=== PATIENT | female | born 1945 | race Caucasian/White ===

== ENCOUNTER → 2016-06-17 | Outpatient (CLI) | payer BC, MEDICARE, SELFPAY ==
[2016-06-17 18:15] LABS: BASO % 0.3 % (0.0-1.0); EOS # 0.1 K/mm3 (0.0-0.50); EOS % 1.7 % (0.0-3.0); LARGE UNSTAINED CELL # 0.1 K/mm3 (0.0-0.4); LARGE UNSTAINED CELL % 2.1 % (0.0-4.0); LYMPH # 1.3 K/mm3 (1.5-4.5); LYMPH % 25.3 % (24.0-44.0); MEAN CORPUSCULAR HEMOGLOBIN 30.3 pg (27.0-33.0); MEAN CORPUSCULAR HGB CONC 33.3 g/dl (32.0-36.5); MONO # 0.3 K/mm3 (0.0-0.8); MONO % 5.9 % (0.0-5.0); NEUTROPHILS % 64.7 % (36.0-66.0); PLATELET COUNT, AUTOMATED 248 k/mm3 (150-450); RED CELL DISTRIBUTION WIDTH 13.3 % (11.5-14.5); WHITE BLOOD COUNT 4.7 K/mm3 (4.0-10.0)
[2016-06-17 19:25] LABS: ALBUMIN 3.7 GM/DL (3.2-5.2); ALBUMIN/GLOBULIN RATIO 1.16 (1.00-1.93); ALKALINE PHOSPHATASE 99 U/L (45-117); ALT/SGPT 20 U/L (12-78); ANION GAP 10 MEQ/L (8-16); AST/SGOT 14 U/L (15-37); BILIRUBIN,TOTAL 0.8 MG/DL (0.2-1.0); BLOOD UREA NITROGEN 11 MG/DL (7-18); CALCIUM LEVEL 9.4 MG/DL (8.8-10.2); CARBON DIOXIDE LEVEL 27 MEQ/L (21-32); CHLORIDE LEVEL 107 MEQ/L (98-107); CHOLESTEROL LEVEL 181 MG/DL (<200); CREATININE FOR GFR 0.64 MG/DL (0.55-1.02); FREE T4 1.81 NG/DL (0.76-1.46); GLOMERULAR FILTRATION RATE > 60.0 (>39); GLUCOSE, FASTING 113 MG/DL (83-110); POTASSIUM SERUM 3.9 MEQ/L (3.5-5.1); SODIUM LEVEL 144 MEQ/L (136-145); TOTAL PROTEIN 6.9 GM/DL (6.4-8.2); TRIGLYCERIDES LEVEL 80 MG/DL (<150)
== END | disposition home or self-care (01) ==
LOC: M WUC 09:08
PROVIDERS: ATTEND Physician Assistant
DX: I10 Essential (primary) hypertension (principal)

== ENCOUNTER 2016-07-26 20:16 | Emergency (ER) | payer MEDICARE ==
[~2016-07-26] VITALS: Ht 160 cm; Wt 61.2 kg
[2016-07-26] MEDS ORDERED: ATEN25TA PO (20:34)
[2016-07-26] MEDS ORDERED: cloNIDine 0.2 MG TAB PO ONE (21:45)
[2016-07-26 21:46] LABS: ANION GAP 9 MEQ/L (8-16); BLOOD UREA NITROGEN 14 MG/DL (7-18); CALCIUM LEVEL 8.9 MG/DL (8.8-10.2); CARBON DIOXIDE LEVEL 28 MEQ/L (21-32); CHLORIDE LEVEL 106 MEQ/L (98-107); CREATININE FOR GFR 0.66 MG/DL (0.55-1.02); GLOMERULAR FILTRATION RATE > 60.0 (>39); GLUCOSE, FASTING 126 MG/DL (83-110); POTASSIUM SERUM 3.5 MEQ/L (3.5-5.1); SODIUM LEVEL 143 MEQ/L (136-145)
[2016-07-26 22:28] VITALS: BP 206/106
[2016-07-26] MEDS ORDERED: **hydrALAZINE** 10 MG TAB PO ONE (22:30)
[2016-07-26] MEDS ORDERED: CLONI1TA PO (23:16)
[2016-07-27 00:16] VITALS: BP 152/81
--- NOTE | 2016-07-27 09:02 | ECGEPIP ---
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
== END 2016-07-27 00:18 | disposition home or self-care (01) ==
LOC: EDBD 20:16 → M ED 21:41
DX: I10 Essential (primary) hypertension (principal); Z88.5 Allergy status to narcotic agent; Z79.899 Other long term (current) drug therapy

== ENCOUNTER 2016-07-30 08:06 | Inpatient (IN) | payer MEDICARE ==
[~2016-07-30] VITALS: Ht 160 cm; Wt 62.6 kg
[~2016-07-30 08:06] MED LIST: ATEN25TA PO; CLONI1TA PO
[2016-07-30] MEDS: LABETALOL HCL 100 MG/20 ML VIAL IV PRN ×2 (08:50→09:06)
[2016-07-30 08:53] LABS: BASO % 0.4 % (0.0-1.0); EOS # 0.1 K/mm3 (0.0-0.50); EOS % 2.3 % (0.0-3.0); LARGE UNSTAINED CELL # 0.2 K/mm3 (0.0-0.4); LARGE UNSTAINED CELL % 2.9 % (0.0-4.0); LYMPH # 1.2 K/mm3 (1.5-4.5); LYMPH % 21.3 % (24.0-44.0); MEAN CORPUSCULAR HEMOGLOBIN 29.8 pg (27.0-33.0); MEAN CORPUSCULAR HGB CONC 33.7 g/dl (32.0-36.5); MEAN CORPUSCULAR VOLUME 88.4 fl (80.0-96.0); MONO # 0.3 K/mm3 (0.0-0.8); MONO % 4.5 % (0.0-5.0); NEUTROPHILS # 3.9 K/mm3 (1.8-7.7); NEUTROPHILS % 68.6 % (36.0-66.0); PLATELET COUNT, AUTOMATED 244 k/mm3 (150-450); RED CELL DISTRIBUTION WIDTH 13.1 % (11.5-14.5); WHITE BLOOD COUNT 5.7 K/mm3 (4.0-10.0)
--- NOTE | 2016-07-30 08:54 | REP ---
Clinical: Acute cerebrovascular accident. Comparison: None. Findings: Very subtle area of low density within the right parietal white matter tracts (images 17 - 20) is nonspecific and may represent acute versus chronic area of infarction. The guevara-white differentiation is maintained. There is no intracranial hemorrhage, mass or mass effect. The ventricles and sulci and basilar cisterns are normal in appearance. Impression: 1. Very subtle low density area in the right parietal white matter tract is nonspecific. Differential diagnosis includes small acute versus chronic cerebrovascular infarct. 2. No hemorrhage or mass/mass effect. Signed by Blake Maloney MD 07/30/2016 08:46 A
[2016-07-30] MEDS ORDERED: ASPIRIN 81 MG CHEW TABLET PO ONE (09:00)
--- NOTE | 2016-07-30 09:05 | REP ---
Clinical: Acute cerebrovascular accident. Comparison: 08/15/2009. Findings: Mediastinum and cardiac silhouette are normal. Lung browning demonstrate chronic changes including linear scarring in the left mid to lower lung zone. No obvious acute consolidation, effusion, or pneumothorax. Skeletal structures intact and normal for age. Impression: Chronic stable changes. No obvious acute cardiopulmonary process. Signed by Blake Maloney MD 07/30/2016 08:56 A
[2016-07-30 09:10] LABS: ALBUMIN 3.4 GM/DL (3.2-5.2); ALBUMIN/GLOBULIN RATIO 0.89 (1.00-1.93); ALKALINE PHOSPHATASE 94 U/L (45-117); ALT/SGPT 16 U/L (12-78); ANION GAP 9 MEQ/L (8-16); AST/SGOT 11 U/L (15-37); BILIRUBIN,DIRECT 0.2 MG/DL (0.0-0.2); BILIRUBIN,TOTAL 0.6 MG/DL (0.2-1.0); BLOOD UREA NITROGEN 14 MG/DL (7-18); CALCIUM LEVEL 9.1 MG/DL (8.8-10.2); CARBON DIOXIDE LEVEL 26 MEQ/L (21-32); CHLORIDE LEVEL 107 MEQ/L (98-107); CREATININE FOR GFR 0.64 MG/DL (0.55-1.02); GLOMERULAR FILTRATION RATE > 60.0 (>39); GLUCOSE, FASTING 138 MG/DL (83-110); POTASSIUM SERUM 3.4 MEQ/L (3.5-5.1); SODIUM LEVEL 142 MEQ/L (136-145); TOTAL PROTEIN 7.2 GM/DL (6.4-8.2)
[2016-07-30 09:19] LABS: INR 1.01
[2016-07-30] MEDS ORDERED: **hydrALAZINE HCL** 25 MG TAB PO ONE (09:45)
[2016-07-30] MEDS ORDERED: hydrALAZINE INJ 20 MG/ML VIAL IV ONE (09:45)
[2016-07-30] MEDS ORDERED: XIID5DRO OU (09:57)
[2016-07-30] MEDS ORDERED: LORazepam 1 MG TAB PO STA (11:08)
[2016-07-30] MEDS ORDERED: POTASSIUM CHLORIDE 10 MEQ SR TABLET PO ONE (12:00)
[2016-07-30] MEDS: **hydrALAZINE HCL** 25 MG TAB PO SCH ×2 (12:00→17:44)
[2016-07-30] MEDS ORDERED: LISINOPRIL 10 MG TAB PO ONE (12:00)
[2016-07-30 12:03] VITALS: BP 189/93
--- NOTE | 2016-07-30 12:19 | HPEPDOC ---
General Date of Admission 07/30/16 Primary Care Physician: Josh Choudhary Other Providers Eye Doctor: Dr. Alejo Attending Physician: MARY MORSE MD Chief Complaint The patient is a 70-year-old female admitted with a reason for visit of Chest Pain. Source: Patient Exam Limitations: No limitations Associated Symptoms: Chest Pain, Headaches, Shortness of breath, Dizziness History of Present Illness PRIMARY CARE PROVIDER: Dr. Josh Choudhary CHIEF COMPLAINT: Dizziness, numbness in the left arm, left sided chest pain, and high blood pressure HISTORY OF PRESENT ILLNESS: 70-year-old [place] female with past medical history significant for hypertension, sinusitis, psoriasis, depression, and questionable arthritis, presented to the emergency department at [facility] for symptoms of lightheadedness, dizziness, left arm numbness, and left-sided chest pain that began this morning when she woke up. States that in mid May she had thought she had caught a virus because she was feeling sick, she went to the urgent care, was found to have high blood pressure, was given atenolol, which she took and sometimes felt better, sometimes felt worse, or some days she felt great. She went back to the urgent care last , they had sent her to the emergency department via ambulance due to high blood pressure at 235 systolic. In the emergency department, she was kept for 4 hours to get her blood pressure down, was given clonidine which she took 2 tabs of which made her feel feel horrible, dizzy, nauseated. She had stopped this medication and went back to taking atenolol. She took atenolol on Saturday night and yesterday. She slept well last night. This morning, she did not feel too bad at first, she woke up this morning and felt funny, lightheaded, and had numbness in her left arm, and somewhat left- sided chest pain,. She tried to call somebody to get her to the emergency department. Her neighbor had brought her to emergency department. States she has not seen for 5 years since she lost her Blue Cross Blue Shield insurance and she was not eligible for Medicare at the age of 65. She had to wait for Social Security from her ex-. She could not afford private insurance as she never worked in this country. She originally saw Dr. Josh Choudhary as her PCP until she had lost her insurance at age 65. Since then, she has not been on any of her blood pressure medications. She has reestablished care with him now. At this point in time, patient denies fevers, chills, dizziness, chest pain, shortness of breath, nausea, vomiting, abdominal pain, diarrhea, constipation, rashes or lesions anywhere, swelling,. She admits to a light headache in her forehead which has become better, mainly feeling that this is due to sinus pressure. She also admitted to shortness of breath in the morning until she had gone to the emergency department and was treated for her high blood pressure. She denies numbness, tingling in any extremities at this point in time. She reports improvement in sensation in her left arm. Denies paresthesias in the left arm. Admits to a sore throat, denies ear pain, denies cough. ALLERGIES: Seasonal, hydrocodone--rash PAST MEDICAL HISTORY: Hypertension Sinusitis Psoriasis Depression Questionable arthritis (In the right foot Glaucoma PAST SURGICAL HISTORY: Hysterectomy Repair of incarcerated hernia Bunion surgery MEDICATIONS: Atenolol 25 mg by mouth daily Claritin OTC sometimes for seasonal allergies Eye Drops once a day Vitamin B12 Vitamin D Biosil Flonase sometimes SOCIAL HISTORY: Was a social smoker 35-40 years ago but has quit. No recent tobacco use. Sometimes drinks a glass of wine, but not every day. Is not a heavy drinker. No illicit drug use. No pets. Lives at home by self. Is . 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 Has 3 children: 2 twin boys who are 51 years of age who live in [place], and one son who is 30 years old lives in [facility] FAMILY HISTORY: Mother: Hypertension 2 sons in [place]: Hypertension CODE STATUS: Has healthcare proxy: Son is 1st: Tc Kevin (lives in [place]), if not available Ex- is next : Luis Manuel Rosado Power of Product Marketing Director: Ex- Luis Manuel Rosado No MOLST form REVIEW OF SYSTEMS: All ROS negative except for those reported above in HPI. PHYSICAL EXAMINATION: Vitals: T: 97.8, BP: 261/132 (175), RR: 16, P: 80 General: Pleasant elderly female with accent. Lying down and the head of the bed in no acute distress. Awake, alert, oriented 3 HEENT: Head: normocephalic, atraumatic. Eyes: PERRL, sclera are nonicteric. Nose: No external lesions Throat: no pharyngeal erythema or exudates, moist buccal mucosa Neck: No thyromegaly. Respiratory: clear to auscultation bilaterally with no wheezes, rales, or rhonchi. Cardiovascular: regular rate and rhythm, with no murmurs, rubs or gallops. Abdomen: soft, nontender, nondistended, no hepatosplenomegaly appreciated. Bowel sounds present. Extremities: 5/5 strength in upper and lower extremities bilaterally, no swelling in either lower extremity bilaterally Neurological: sensation intact and symmetrical in upper and lower extremities bilaterally, Cranial nerves II through XII intact bilaterally Lymphatics: No cervical lymphadenopathy bilaterally. Integumentary: Has some erythema and pimples and on cheeks bilaterally. Vascular: pulses palpable and symmetrical in upper and lower extremities bilaterally LABORATORY DATA: Please see below. Significant for potassium of 3.4, troponin less than 0.021, a fasting glucose of 138. ELECTROCARDIOGRAM: 07/30/16: Showed sinus rhythm with occasional ventricular premature complexes, possible left atrial enlargement, left ventricular hypertrophy, and ST-T change at a ventricular rate of 76 bpm, QRS duration 101 ms, PA interval 126 ms, and a QTC of 405 ms. RADIOLOGY: CT scan of the head without contrast impression: Very subtle low density area in the right parietal white matter tract is nonspecific. Differential diagnosis includes small acute versus chronic cerebrovascular infarct. No hemorrhage or mass/mass effect. Portable chest x-ray: Lung browning demonstrate chronic changes including linear scarring in the left mid to lower lung zone, no obvious acute consolidation, effusion or pneumothorax. No obvious acute cardiopulmonary process. Chronic stable changes. ASSESSMENT: This is a 70-year-old [place] female with past medical history significant for hypertension, psoriasis, depression, and sinusitis who is being admitted for hypertensive emergency secondary to medication noncompliance due to no availability of medications secondary to insurance issues. PLAN: Hypertensive emergency: Left-sided numbness and paresthesias has improved. Left -sided chest pain has resolved. We'll admit to telemetry, place on chemical dependency therapist, cycle 2 more sets of troponins. Will follow up CBC, BMP, and Mg levels daily. We will repeat an EKG. We'll order a urinalysis to rule out proteinuria/ kidney damage. Will check TFTs. Will continue hydralazine and add additional hypertensive medications as per Dr. Josh Choudhary. Chest pain: We'll cycle troponins and follow-up with repeat EKG. We'll monitor on chemical dependency therapist. Admit to telemetry. Left arm numbness: We'll continue to monitor closely. We'll do frequent neurological checks. Hypokalemia: K of 3.4. Will replace K. Psoriasis: Continue home medications. Headache/sinusitis: Can give Flonase and nasal saline spray. Can add Tylenol PRN pain. Continue home medications. Will get PT on board. DVT ppx: lovenox 40 mg subcutaneously. CODE STATUS: FULL CODE until MOLST form Immunizations as per protocol. My preceptor for this patient encounter was Dr. Mary Morse, and was physically present in the building during the encounter and was fully available. As needed , all aspects of the patient interview, examination, medical decision making process, and medical care plan development were reviewed and approved by the preceptor. Preceptor is aware and concurs with the plan as stated in the body of this note and will attest to such by his/her cosignature. Home Medications Scheduled Hydrochlorothiazide (Hydrochlorothiazide) 25 Mg Tab 25 MG PO DAILY Hydrochlorothiazide (Hydrochlorothiazide) 6.25 Mg Quartertab BID (Reported) Lifitegrast (Xiidra) 5 % Patrick 5 % OU DAILY (Reported) Lisinopril (Lisinopril) 10 Mg Tab 10 MG PO BID Methimazole (Methimazole) 10 Mg Tab 10 MG PO DAILY Metoprolol Tartrate (Metoprolol Tartrate) 25 Mg Tab 12.5 MG PO BID Scheduled PRN Simethicone (Simethicone) 80 Mg Chew 80 MG PO TIDP PRN PRN GAS PAIN Allergies Coded Allergies: Hydrocodone (Verified Allergy, Intermediate, rash, 07/26/16) Vital Signs As above. Laboratory Data Labs 24H Laboratory Tests 2 07/30/16 08:43: Activated Partial Thromboplast Time 32.6, Aspartate Amino Transf (AST/SGOT) 11L , Alanine Aminotransferase (ALT/SGPT) 16, Alkaline Phosphatase 94, Total Bilirubin 0.6, Direct Bilirubin 0.2, Albumin 3.4, Albumin/Globulin Ratio 0.89L, Anion Gap 9, White Blood Count 5.7, Red Blood Count 4.50, Hemoglobin 13.4, Hematocrit 39.8, Mean Corpuscular Volume 88.4, Mean Corpuscular Hemoglobin 29.8 , Mean Corpuscular Hemoglobin Concent 33.7, Red Cell Distribution Width 13.1, Platelet Count 244, Neutrophils (%) (Auto) 68.6H, Lymphocytes (%) (Auto) 21.3L, Monocytes (%) (Auto) 4.5, Eosinophils (%) (Auto) 2.3, Basophils (%) (Auto) 0.4, Neutrophils # (Auto) 3.9, Lymphocytes # (Auto) 1.2L, Monocytes # (Auto) 0.3, Eosinophils # (Auto) 0.1, Basophils # (Auto) 0.0, Calcium Level 9.1, Creatine Kinase MB 1.0, Creatine Kinase MB Relative Index 2.77, Glomerular Filtration Rate > 60.0, Large Unclassified Cells # 0.2, Large Unclassified Cells % 2.9, Prothromb Time International Ratio 1.01, Prothrombin Time 13.4, Total Creatine Kinase 36, Total Protein 7.2, Troponin I < 0.02 CBC/BMP Laboratory Tests 07/30/16 08:43 Red Blood Count 4.50, Mean Corpuscular Volume 88.4, Mean Corpuscular Hemoglobin 29.8, Mean Corpuscular Hemoglobin Concent 33.7, Red Cell Distribution Width 13.1 , Neutrophils (%) (Auto) 68.6 H, Lymphocytes (%) (Auto) 21.3 L, Monocytes (%) ( Auto) 4.5, Eosinophils (%) (Auto) 2.3, Basophils (%) (Auto) 0.4, Neutrophils # ( Auto) 3.9, Lymphocytes # (Auto) 1.2 L, Monocytes # (Auto) 0.3, Eosinophils # ( Auto) 0.1, Basophils # (Auto) 0.0 Plan / VTE VTE Prophylaxis Ordered?: Yes (lovenox) FAHEEM KWON [facility] [place] Jul 30, 2016 12:19 [place] [id number] Jul 30, 2016 12:19
[2016-07-30 12:44] LABS: MAGNESIUM LEVEL 2.1 MG/DL (1.8-2.4)
[2016-07-30 15:14] VITALS: BP 210/108
[2016-07-30] MEDS: ENOXAPARIN 40 MG/0.4 ML SYRINGE (J1650) SC SCH (15:47)
[2016-07-30] MEDS: hydrALAZINE INJ 20 MG/ML VIAL IV PRN (15:49)
[2016-07-30 16:55] VITALS: BP 180/88
[2016-07-30] MEDS: ACETAMINOPHEN TAB 650MG DOSE (2X325MG) PO PRN (17:44)
--- NOTE | 2016-07-30 18:24 | ECGEPIP ---
Stationary ECG Study [facility] - ED Test Date: 2016-07-30 Pat Name: TUAN WHITLEY Department: Room: - Gender: F Code And Test Clerk: preston : 1945 Requested By: Carlos Long Order Number: [id number] Reading MD: Jn Wheeler Measurements Intervals [place] Rate: 76 P: 28 UT: 126 QRS: 15 QRSD: 101 T: 24 QT: 374 QTc: 422 Interpretive Statements SINUS RHYTHM WITH OCCASIONAL VENTRICULAR PREMATURE COMPLEXES POSSIBLE LEFT ATRIAL ENLARGEMENT LEFT VENTRICULAR HYPERTROPHY AND ST-T CHANGE SIMILAR TO 07/26/16 Electronically Signed On 07-30-2016 18:24:22 EDT by Jn Wheeler
[2016-07-30 20:00] VITALS: BP 172/78
[2016-07-30] MEDS: LISINOPRIL 10 MG TAB PO SCH (22:25)
[2016-07-31] MEDS: **hydrALAZINE HCL** 25 MG TAB PO SCH ×5 (01:02→23:01)
[2016-07-31 04:00] VITALS: BP 170/84
[2016-07-31 05:53] LABS: BASO % 0.1 % (0.0-1.0); EOS # 0.1 K/mm3 (0.0-0.50); EOS % 1.2 % (0.0-3.0); LARGE UNSTAINED CELL # 0.1 K/mm3 (0.0-0.4); LARGE UNSTAINED CELL % 2.2 % (0.0-4.0); LYMPH # 0.9 K/mm3 (1.5-4.5); LYMPH % 14.5 % (24.0-44.0); MEAN CORPUSCULAR HEMOGLOBIN 30.7 pg (27.0-33.0); MEAN CORPUSCULAR VOLUME 90.3 fl (80.0-96.0); MONO # 0.5 K/mm3 (0.0-0.8); MONO % 8.4 % (0.0-5.0); NEUTROPHILS # 3.9 K/mm3 (1.8-7.7); NEUTROPHILS % 73.6 % (36.0-66.0); PLATELET COUNT, AUTOMATED 251 k/mm3 (150-450); RED CELL DISTRIBUTION WIDTH 13.3 % (11.5-14.5); WHITE BLOOD COUNT 5.4 K/mm3 (4.0-10.0)
[2016-07-31 06:10] LABS: ANION GAP 9 MEQ/L (8-16); BLOOD UREA NITROGEN 11 MG/DL (7-18); CALCIUM LEVEL 8.8 MG/DL (8.8-10.2); CARBON DIOXIDE LEVEL 26 MEQ/L (21-32); CHLORIDE LEVEL 107 MEQ/L (98-107); CREATININE FOR GFR 0.45 MG/DL (0.55-1.02); GLOMERULAR FILTRATION RATE > 60.0 (>39); GLUCOSE, FASTING 98 MG/DL (83-110); MAGNESIUM LEVEL 1.9 MG/DL (1.8-2.4); POTASSIUM SERUM 3.3 MEQ/L (3.5-5.1); SODIUM LEVEL 142 MEQ/L (136-145); T UPTAKE 37 % (30-39); THYROXINE (T4) 12.2 UG/DL (4.5-12.0)
[2016-07-31 08:00] VITALS: BP 159/77
[2016-07-31] MEDS: LISINOPRIL 10 MG TAB PO SCH ×2 (08:09→20:53)
[2016-07-31] MEDS: ENOXAPARIN 40 MG/0.4 ML SYRINGE (J1650) SC SCH (08:10)
[2016-07-31] MEDS ORDERED: POTASSIUM CHLORIDE 10 MEQ SR TABLET PO ONE (08:30)
[2016-07-31 16:00] VITALS: BP 180/84
--- NOTE | 2016-07-31 16:11 | REP ---
THYROID ULTRASOUND: Real-time sonographic evaluation of the thyroid performed. Both lobes are mildly enlarged, right lobe measuring 5.8 x 2.9 x 2.5 cm and left lobe 5.2 x 2.5 x 2.3 cm. Echotexture diffusely heterogeneous. There are multiple bilateral nodules present. Dominant nodule in the mid to lower lobe measures 2.7 x 2.0 x 1.9 cm and contains several tiny calcifications. Smaller nodule just superior to that measures 8 x 5 x 6 mm. There is a calcification in the right upper pole. A cyst is seen in the right lower pole 1.1 x 0.8 x 0.6 cm. Subcentimeter cyst is seen in the isthmus. Two small nodules are seen in the isthmus measuring 1 cm and 1.2 cm in maximum diameter. A dominant nodule in the left lobe mid aspect measures 1.3 x 1.5 x 1.7 cm containing internal calcifications. Small similar appearing nodules are seen, one more superiorly measuring 1.1 x 1.1 x 1.5 cm and another in the lower pole 1.1 x 1.0 x 1.7 cm. IMPRESSION: Multiple bilateral nodules. Correlation may be made with nuclear thyroid scan. I would at least recommend fine-needle aspiration of the dominant nodule in each lobe. Signed by Cosmo Peres MD 07/31/2016 04:30 P
[2016-07-31 17:32] LABS: FREE T4 1.73 NG/DL (0.76-1.46)
[2016-07-31 20:00] VITALS: BP 194/78
--- NOTE | 2016-07-31 20:13 | IPNPDOC ---
Text Note Date of Service The patient was seen on 07/31/16. NOTE Subjective: 70-year-old [place] female was seen and examined at bedside. She denied fevers, chills, headache, dizziness, chest pain, shortness of breath, nausea, vomiting, diarrhea, constipation, rashes or lesions anywhere, swelling. States that she was feeling better. Denied feeling any numbness or tingling in her left arm today. Otherwise, reports no acute events overnight. Objective: Vitals: T: 98.4, BP: 170/84, RR: 18, P: 77, O2 Saturation: 96% room air General: Pleasant elderly female with accent. Lying down and the head of the bed in no acute distress. Awake, alert, oriented 3 HEENT: Head: normocephalic, atraumatic. Eyes: PERRL, sclera are nonicteric. Nose: No external lesions Neck: No thyromegaly. Respiratory: clear to auscultation bilaterally with no wheezes, rales, or rhonchi. Cardiovascular: regular rate and rhythm, with no murmurs, rubs or gallops. Had a bit of loud palpable heart sounds. Abdomen: soft, nontender, nondistended, no hepatosplenomegaly appreciated. Bowel sounds present. Extremities: Symmetric and equal hand milieu manager bilaterally. No swelling in either lower extremity bilaterally. Neurological: sensation intact and symmetrical in upper extremities bilaterally. Cranial nerves II through XII intact bilaterally. Lymphatics: No cervical lymphadenopathy bilaterally. Integumentary: Has some erythema and pimples and on cheeks bilaterally. Vascular: pulses palpable and symmetrical in upper and lower extremities bilaterally. Laboratory data: Please see below. Potassium 3.3. Magnesium 1.9. Troponins: Negative 3. TSH: 0.023 (L) Free T4: 1.73 (H) Free T4 Index: 4.5 Thyroxine: 12.2 (H) T3 uptake: 37 Urinalysis: 1+ ketone, otherwise negative. Microbiology: Urine cultures pending. Imaging: Thyroid ultrasound pending. Assessment: This is a 70-year-old [place] female with past medical history significant for hypertension, psoriasis, depression, and sinusitis who is being admitted for hypertensive emergency secondary to medication noncompliance due to no availability of medications secondary to insurance issues. Plan: Hypertensive Emergency: Left-sided numbness and paresthesias has resolved. Left -sided chest pain has resolved. On telemetry on panel monitor. Troponins have been negative x 3. Will follow up CBC, BMP, and Mg levels daily. K was low at 3.3 and was replaced with 40 mEqs of KCl. Repeat EKG pending. Urinalysis was essentially negative with 1+ ketones only. Continue tx with hydralazine 25mg q6h PO, hydralazine q4h PRN IV for elevated BP, and lisinopril 10 mg PO BID. Follow BMPs and Mg levels daily. Chest pain: No reported chest pain today. Troponins (-) x 3. Follow-up with repeat EKG. We'll monitor on panel monitor and telemetry. Left arm numbness: Has resolved and not recurred. Continue neurological checks as appropriate. Will consider starting aspirin 81 mg daily. Elevated Thyroid Function Tests: TSH 0.023, Free T4 1.73, thyroxine of 12.2. Will obtain thyroid U/S. Hypokalemia: K of 3.3 today. Supplemented with 40 mEq of KCl PO. Continue to monitor BMPs daily. Psoriasis: Continue home medications PRN. Headache/sinusitis: Not complaining of any headache or sinus pressure/pain today. If these symptoms do occur, will give Flonase and nasal saline spray. On tylenol PRN pain. Continue home medications. Physical Therapy has seen and evaluated patient today: Physical Therapy Evaluation Note * Pt. I in ambulation and ADLs prior to hospitalization. Demonstrates good safety awareness and kya with ambulation without AD and ease with stair negotitation. No reports of pain throughout and verbalizes understanding of POC to return home with prior level of care when medically appropriate. No skilled PT needs at present time. Pt. supine with HOB elevated at end of session with call ashby within reach and nurse:liv updated. PT Recommendations * Recommend home with prior level of care when medically appropriate. DVT ppx: lovenox 40 mg subcutaneously. CODE STATUS: FULL CODE until MOLST form Immunizations as per protocol. My preceptor for this patient encounter was Dr. Aurelio Arreguin, and was physically present in the building during the encounter and was fully available. As needed , all aspects of the patient interview, examination, medical decision making process, and medical care plan development were reviewed and approved by the preceptor. Preceptor is aware and concurs with the plan as stated in the body of this note and will attest to such by his/her cosignature VSMoy, I+O VSMoy, I+O Laboratory Tests 07/31/16 05:11 Calcium Level 8.8, Red Blood Count 4.05, Mean Corpuscular Volume 90.3, Mean Corpuscular Hemoglobin 30.7, Mean Corpuscular Hemoglobin Concent 34.0, Red Cell Distribution Width 13.3, Neutrophils (%) (Auto) 73.6 H, Lymphocytes (%) (Auto) 14.5 L, Monocytes (%) (Auto) 8.4 H, Eosinophils (%) (Auto) 1.2, Basophils (%) ( Auto) 0.1, Neutrophils # (Auto) 3.9, Lymphocytes # (Auto) 0.9 L, Monocytes # ( Auto) 0.5, Eosinophils # (Auto) 0.1, Basophils # (Auto) 0.0 Vital Signs Date Time Temp Pulse Resp B/P Pulse Ox O2 Delivery O2 Flow Rate FiO2 07/31/16 17:01 180/84 07/31/16 16:00 98.3 81 19 95 Room Air I&O- Last 24 Hours up to 6 AM 07/31/16 05:59 Intake Total 480 ml Output Total 900 ml Balance -420 ml FAHEEM [id number] Jul 31, 2016 20:13
[2016-07-31 22:00] VITALS: BP 170/94
--- NOTE | 2016-07-31 22:17 | ECGEPIP ---
Stationary ECG Study [facility] Test Date: 2016-07-31 Pat Name: TUAN WHITLEY Department: Room: [place] [address] Gender: F Writer Producer: STEPHENIE : 1945 Requested By: FAHEEM MOLINA1 Order Number: [id number] Reading MD: Sri Lindsay Measurements Intervals [place] Rate: 81 P: 11 AL: 134 QRS: 15 QRSD: 101 T: 9 QT: 389 QTc: 453 Interpretive Statements SINUS RHYTHM NON-SPECIFIC STT ABNORMALITIES SIMILAR 07/30/16 Electronically Signed On 07-31-2016 22:17:30 EDT by Sri Lindsay
[2016-07-31] MEDS: FLUTICASONE PROP 0.05% NASAL SPRAY 16 GM (FLONASE) SCH (23:01)
[2016-08-01] VITALS (11 sets, daily range): BP systolic 160–198; BP diastolic 72–96
[2016-08-01] MEDS: METOPROLOL 5 MG/5 ML VIAL IV SCH ×4 (04:37→20:26)
[2016-08-01 05:48] LABS: BASO % 0.6 % (0.0-1.0); EOS # 0.1 K/mm3 (0.0-0.50); EOS % 1.4 % (0.0-3.0); LARGE UNSTAINED CELL # 0.2 K/mm3 (0.0-0.4); LARGE UNSTAINED CELL % 3.1 % (0.0-4.0); LYMPH # 1.1 K/mm3 (1.5-4.5); LYMPH % 20.8 % (24.0-44.0); MEAN CORPUSCULAR HEMOGLOBIN 29.4 pg (27.0-33.0); MEAN CORPUSCULAR HGB CONC 32.9 g/dl (32.0-36.5); MEAN CORPUSCULAR VOLUME 89.4 fl (80.0-96.0); MONO # 0.4 K/mm3 (0.0-0.8); MONO % 6.9 % (0.0-5.0); NEUTROPHILS # 3.5 K/mm3 (1.8-7.7); NEUTROPHILS % 67.2 % (36.0-66.0); PLATELET COUNT, AUTOMATED 282 k/mm3 (150-450); RED CELL DISTRIBUTION WIDTH 13.2 % (11.5-14.5); WHITE BLOOD COUNT 5.2 K/mm3 (4.0-10.0)
[2016-08-01] MEDS: **hydrALAZINE HCL** 25 MG TAB PO SCH (06:00)
[2016-08-01 06:15] LABS: ANION GAP 8 MEQ/L (8-16); BLOOD UREA NITROGEN 8 MG/DL (7-18); CALCIUM LEVEL 8.7 MG/DL (8.8-10.2); CARBON DIOXIDE LEVEL 25 MEQ/L (21-32); CHLORIDE LEVEL 110 MEQ/L (98-107); CREATININE FOR GFR 0.41 MG/DL (0.55-1.02); GLOMERULAR FILTRATION RATE > 60.0 (>39); GLUCOSE, FASTING 106 MG/DL (83-110); MAGNESIUM LEVEL 1.9 MG/DL (1.8-2.4); POTASSIUM SERUM 3.8 MEQ/L (3.5-5.1); SODIUM LEVEL 143 MEQ/L (136-145)
[2016-08-01] MEDS: ENOXAPARIN 40 MG/0.4 ML SYRINGE (J1650) SC SCH (08:19)
[2016-08-01] MEDS: LISINOPRIL 10 MG TAB PO SCH ×2 (08:20→20:26)
[2016-08-01] MEDS: FLUTICASONE PROP 0.05% NASAL SPRAY 16 GM (FLONASE) SCH ×2 (08:21→20:55)
[2016-08-01] MEDS ORDERED: INFLUENZA VIRUS VACCINE HIGH DOSE 0.5 ML SYRINGE (90662) IM ONE (09:00)
[2016-08-01] MEDS ORDERED: LIDOCAINE 1% MDV 20ML VIAL As Ordered ONE (13:56)
[2016-08-01] MEDS: hydrALAZINE INJ 20 MG/ML VIAL IV PRN (15:38)
--- NOTE | 2016-08-01 16:29 | REP ---
ULTRASOUND GUIDED BILATERAL THYROID BIOPSY: The procedure was performed under the direct supervision of Dr. Peres. The patient has a history of multiple bilateral thyroid nodules seen on a previous ultrasound dated 07/31/2016. The risks and benefits of the procedure were explained to the patient and informed consent was obtained. The largest nodule on either side of the thyroid were localized using ultrasound guidance. The skin was prepped and draped in a sterile fashion. 1% lidocaine was used as a local anesthetic. The left thyroid nodule was addressed first. Using ultrasound guidance four fine-needle aspirations were obtained. The right thyroid nodule was then addressed. Using ultrasound guidance four fine-needle aspirations were obtained using 25-gauge needles. The patient tolerated the procedure well and there were no immediate complications. Reviewed by SONJA Soto 08/02/2016 04:21 PEdited and Signed by Cosmo Peres MD 08/03/2016 01:13 P
[2016-08-01] MEDS: ACETAMINOPHEN TAB 650MG DOSE (2X325MG) PO PRN (16:46)
--- NOTE | 2016-08-01 22:49 | IPNPDOC ---
Text Note Date of Service The patient was seen on 08/01/16. NOTE Subjective: 70-year-old [place] Islander female was seen and examined at bedside. She denied fevers, chills, headache, dizziness, chest pain, shortness of breath, nausea, vomiting, diarrhea, constipation, rashes or lesions anywhere, swelling, numbness/tingling. Admits that at ~11:30 after she was given her dose of hydralazine, she started to become very hot and was having heat intolerance, began to sweat, and developed a red and warm rash on her forearms, and started having tremors in her legs last evening. She stated she was very anxious. Eventually, her symptoms did improve over time. Additionally, she admits generally to hair loss, palpitations, anxiety, and minimal weight loss. Objective: Vitals: T: 98.2, BP: 180/72, RR: 18, P:84, O2 Saturation: 95 % room air General: Pleasant elderly female with accent. Sitting up at head of the bed in no acute distress. Awake, alert, oriented 3. HEENT: Head: normocephalic, atraumatic. Eyes: PERRL, sclera are nonicteric. Nose: No external lesions. Psychiatric: Seems very anxious. Neck: No thyromegaly. +thyroid nodules palpable on bilateral lobes. Respiratory: clear to auscultation bilaterally with no wheezes, rales, or rhonchi. Cardiovascular: regular rate and rhythm, with no murmurs, rubs or gallops. Had a bit of loud palpable heart sounds. Abdomen: soft, nontender, nondistended, no hepatosplenomegaly appreciated. Bowel sounds present. Extremities: Symmetric and equal hand screening unit registered nurse bilaterally. No swelling in either lower extremity bilaterally. Neurological: sensation intact and symmetrical in upper extremities bilaterally. Lymphatics: No cervical lymphadenopathy bilaterally. Integumentary: Has some erythema and pimples and on cheeks bilaterally. Vascular: pulses palpable and symmetrical in upper and lower extremities bilaterally. Laboratory data: Please see below.. Microbiology: Urine cultures showed no growth. Imaging: Thyroid ultrasound: showed multiple bilateral nodules. Correlation may be made with Nuclear Thyroid Scan. Fine Needle Aspiration of the Dominant Nodule in each Lobe was recommended. Assessment: This is a 70-year-old [place]er female with past medical history significant for hypertension, psoriasis, depression, and sinusitis who is being admitted for hypertensive emergency secondary to medication noncompliance due to no availability of medications secondary to insurance issues. Plan: Hypertensive Emergency: Left-sided numbness and paresthesias has resolved. Left -sided chest pain has resolved. On telemetry on cardiac monitor technician. Troponins have been negative x 3. Will follow up CBC, BMP, and Mg levels daily. Repeat EKG showed: sinus rhythm at a rate of [address]-T abnormalities similar to 07/30/16 EKG. Urine cx pending. Hydralazine discontinued. Have added hydrochlorothiazide 25 mg daily. Is on lopressor 5 mg q6h IV and lisinopril 10 mg PO BID. Will consider adding calcium channel blockers if BP still not controlled. Follow BMPs and Mg levels daily. Mg was 1.9 today. Hyperthyroidism as per TFTs: Thyroid U/S findings of Multiple Bilateral Nodules. Nuclear thyroid scan pending. Chest pain: No reported chest pain today. Troponins (-) x 3. Repeat EKG was unremarkable and showed sinus rhythm with ST-T wave abnormalities similar to prior EKG. We'll monitor on cardiac monitor technician and telemetry. Left arm numbness: Has resolved and not recurred. Continue neurological checks as appropriate. Will consider starting aspirin 81 mg daily. Elevated Thyroid Function Tests: TSH 0.023, Free T4 1.73, thyroxine of 12.2. Will obtain thyroid U/S. Hypokalemia: K of 3.8 today and WNL. Supplement as necessary. Continue to monitor BMPs daily. Psoriasis: Continue home medications PRN. Headache/sinusitis: Flonase added. Can add nasal saline spray. On tylenol PRN pain. Continue home medications. DVT ppx: lovenox 40 mg subcutaneously. CODE STATUS: FULL CODE until MOLST form Immunizations as per protocol. My preceptor for this patient encounter was Dr. Aurelio Arreguin, and was physically present in the building during the encounter and was fully available. As needed , all aspects of the patient interview, examination, medical decision making process, and medical care plan development were reviewed and approved by the preceptor. Preceptor is aware and concurs with the plan as stated in the body of this note and will attest to such by his/her cosignature Moy SPENCER, I+O VSMoy, I+O Laboratory Tests 08/01/16 05:17 Calcium Level 8.7 L, Red Blood Count 4.30, Mean Corpuscular Volume 89.4, Mean Corpuscular Hemoglobin 29.4, Mean Corpuscular Hemoglobin Concent 32.9, Red Cell Distribution Width 13.2, Neutrophils (%) (Auto) 67.2 H, Lymphocytes (%) (Auto) 20.8 L, Monocytes (%) (Auto) 6.9 H, Eosinophils (%) (Auto) 1.4, Basophils (%) ( Auto) 0.6, Neutrophils # (Auto) 3.5, Lymphocytes # (Auto) 1.1 L, Monocytes # ( Auto) 0.4, Eosinophils # (Auto) 0.1, Basophils # (Auto) 0.0 Vital Signs Date Time Temp Pulse Resp B/P Pulse Ox O2 Delivery O2 Flow Rate FiO2 08/01/16 20:26 70 08/01/16 19:41 99.1 18 160/90 94 Room Air I&O- Last 24 Hours up to 6 AM 08/01/16 06:00 Intake Total 2435 ml Output Total 2475 ml Balance -40 ml FAHEEM KWON OGME-1 Aug 01, 2016 22:49
[2016-08-02] VITALS (8 sets, daily range): BP systolic 144–190; BP diastolic 75–95
[2016-08-02] MEDS: METOPROLOL 5 MG/5 ML VIAL IV SCH ×4 (02:50→21:33)
[2016-08-02 05:21] LABS: BASO % 0.4 % (0.0-1.0); EOS # 0.1 K/mm3 (0.0-0.50); EOS % 1.7 % (0.0-3.0); LARGE UNSTAINED CELL # 0.2 K/mm3 (0.0-0.4); LARGE UNSTAINED CELL % 3.2 % (0.0-4.0); LYMPH # 1.1 K/mm3 (1.5-4.5); LYMPH % 18.5 % (24.0-44.0); MEAN CORPUSCULAR HEMOGLOBIN 30.2 pg (27.0-33.0); MEAN CORPUSCULAR HGB CONC 34.1 g/dl (32.0-36.5); MEAN CORPUSCULAR VOLUME 88.6 fl (80.0-96.0); MONO # 0.5 K/mm3 (0.0-0.8); MONO % 9.6 % (0.0-5.0); NEUTROPHILS # 3.4 K/mm3 (1.8-7.7); NEUTROPHILS % 66.8 % (36.0-66.0); PLATELET COUNT, AUTOMATED 257 k/mm3 (150-450); RED CELL DISTRIBUTION WIDTH 13.2 % (11.5-14.5); WHITE BLOOD COUNT 5.1 K/mm3 (4.0-10.0)
[2016-08-02 05:25] LABS: ANION GAP 8 MEQ/L (8-16); BLOOD UREA NITROGEN 11 MG/DL (7-18); CALCIUM LEVEL 8.9 MG/DL (8.8-10.2); CARBON DIOXIDE LEVEL 26 MEQ/L (21-32); CHLORIDE LEVEL 109 MEQ/L (98-107); CREATININE FOR GFR 0.52 MG/DL (0.55-1.02); GLOMERULAR FILTRATION RATE > 60.0 (>39); GLUCOSE, FASTING 104 MG/DL (83-110); MAGNESIUM LEVEL 1.9 MG/DL (1.8-2.4); POTASSIUM SERUM 3.6 MEQ/L (3.5-5.1); SODIUM LEVEL 143 MEQ/L (136-145)
[2016-08-02] MEDS: LISINOPRIL 10 MG TAB PO SCH ×2 (10:03→21:33)
[2016-08-02] MEDS: hydroCHLOROthiazide 25 MG TAB PO SCH (10:03)
[2016-08-02] MEDS: FLUTICASONE PROP 0.05% NASAL SPRAY 16 GM (FLONASE) SCH ×2 (10:04→21:00)
[2016-08-02] MEDS: ENOXAPARIN 40 MG/0.4 ML SYRINGE (J1650) SC SCH (10:06)
[2016-08-02] MEDS ORDERED: SLF 3 ML SYR IV PRN (14:15)
[2016-08-02] MEDS: SLF 3 ML SYR IV SCH (22:00)
--- NOTE | 2016-08-02 22:33 | IPNPDOC ---
Subjective Date Seen The patient was seen on 08/02/16. Subjective Chief Complaint/HPI The patient is a 70-year-old female admitted with a reason for visit of Hypertensive Crisis. Patient seen and examined at bedside. States she is feeling much better about everything and especially knowing that her symptoms are due to her thyroid and that we have identified a cause. She denies any acute overnight events. She denies rashes or lesions. Denies fevers, chills, chest pain, SOB, headache, dizziness, nausea, vomiting, abdominal pain, diarrhea, constipation. She admits to heat intolerance. Admits to anxiety. Events since last encounter No events reported since last encounter. General: Denies: Chills, Fatigue Constitutional: Denies: Chills, Fever ENT: Denies: Head Aches Skin: Denies: Lesions, Rash Pulmonary: Denies: Dyspnea Cardiovascular: Reports: Palpitations, Denies: Chest Pain Gastrointestinal: Denies: Abdominal Pain, Constipation, Diarrhea, Nausea, Vomiting Genitourinary: Denies: Dysuria, Frequency, Hematuria Endocrine: Reports: Heat Intolerance Musculoskeletal: Denies: Joint Pain, Muscle Pain Neurological: Denies: Change in speech, Numbness, Weakness Psych: Reports: Anxiety, Denies: Depression, Memory Issues Objective Physical Examination General Exam: Positive: Alert, Cooperative, No Acute Distress Eye Exam: Positive: Conjunctiva & lids normal, EOMI, Negative: Sclera icteric ENT Exam: Positive: Atraumatic Neck Exam: Positive: Other (thyroid gland palpable with mutlple thyroid nodules bilaterally), Supple, Negative: JVD, Lymphadenopathy, thyromegaly Chest Exam: Positive: Clear to auscultation, Normal air movement, Negative: Rales, Rhonchi, Wheezing Heart Exam: Positive: Normal S1, Normal S2, Rate Normal, Regular Rhythm, Negative: Gallops, Murmurs, Rubs Abdomen Exam: Positive: Normal bowel sounds, Soft, Negative: Hepatospenomegaly, Mass, Tenderness Extremity Exam: Positive: Normal pulses, Negative: Clubbing, Cyanosis, Edema, Swelling Skin Exam: Positive: Nl turgor and temperature, Negative: Rash Neuro Exam: Positive: Normal Gait, Normal Speech Psych Exam: Positive: Anxiety, Memory Intact, Mental status NL, Oriented x 3 Assessment /Plan Assessment This is a 70-year-old [place] female with past medical history significant for hypertension, psoriasis, depression, and sinusitis who is being admitted for hypertensive emergency secondary to medication noncompliance due to no availability of medications secondary to insurance issues. Problems (1) Hypertensive emergency Status: Acute Response to Treatment: Improving Discussed With: Patient Problem Specific Plan: Monitor Clinically Problem Text: Symptoms of Left-sided numbness and paresthesias has resolved. Left-sided chest pain has resolved. On telemetry on monitoring manager. Troponins have been negative x 3. Will follow up CBC, BMP, and Mg levels daily. Urine cx pending. Hydralazine discontinued and only PRN continued. Have added hydrochlorothiazide 25 mg daily. Is on lopressor 5 mg q6h IV and lisinopril 10 mg PO BID. Will consider adding calcium channel blockers if BP still not controlled. Follow BMPs and Mg levels daily. Mg was 1.9 today. (2) Hyperthyroidism Status: Acute Response to Treatment: Uncontrolled Discussed With: Patient Problem Specific Plan: Monitor Clinically, Repeat Labs, Repeat Tests Problem Text: Elevated Thyroid Function Tests: TSH 0.023, Free T4 1.73, thyroxine of 12.2. Have started 5 mg methimazole daily. Thyroid U/S showed multiple thyroid nodules in bilateral lobes. 4 fine needle aspirations were performed yesterday and path is pending. Will obtain NM thyroid scan today and follow up results when available. Will continue to monitor symptoms, vitals, and anxiety. (3) Left arm numbness Status: Resolved Discussed With: Patient Problem Specific Plan: Monitor Clinically Problem Text: Resolved. Continue frequent neuro checks as necessary. (4) Hypokalemia Status: Acute Response to Treatment: Stable Problem Specific Plan: Monitor Clinically, Repeat Labs Problem Text: K 3.6 today and WNL. Continue to monitor BMPs daily and for any symptoms. (5) Psoriasis Status: Chronic Response to Treatment: Stable Discussed With: Patient Problem Specific Plan: Monitor Clinically Problem Text: Use home medications if needed and if flare occurs. No acute rashes at this time. (6) Headache Status: Acute Response to Treatment: Improving Discussed With: Patient Problem Specific Plan: Monitor Clinically Problem Text: Patient does have some sinus pressure/sinusitis type symptoms. Have ordered flonase. Can add nasal saline spray. Use tylenol for headache. (7) Chest pain Status: Resolved Discussed With: Patient Problem Specific Plan: Monitor Clinically Problem Text: No reported chest pain today. Troponins (-) x 3. Repeat EKG was unremarkable and showed sinus rhythm with ST-T wave abnormalities similar to prior EKG. We'll monitor on monitoring manager and telemetry. Plan/VTE VTE Prophylaxis Ordered?: Yes (lovenox 40 mg sc) Plan IVF: Initiate Diet: Continue Current Activity: Continue Current Therapy: PT Diagnostics: Check Labs, Repeat Labs in AM Anticipated Discharge: Home Disposition Discharge to home when medically stable. DVT ppx: lovenox 40 mg sc daily Immunizations as per protocol FULL CODE STATUS until MOLST FORM VS, I&O, 24H, Fishbone Vital Signs/I&O Vital Signs Date Time Temp Pulse Resp B/P Pulse Ox O2 Delivery O2 Flow Rate FiO2 08/02/16 21:33 86 170/90 08/02/16 20:23 99.0 18 96 Room Air I&O- Last 24 Hours up to 6 AM 08/02/16 06:00 Intake Total 2570 ml Output Total 2600 ml Balance -30 ml Laboratory Data 24H LABS Laboratory Tests 2 08/02/16 04:57: Anion Gap 8, White Blood Count 5.1, Red Blood Count 4.35, Hemoglobin 13.1, Hematocrit 38.5, Mean Corpuscular Volume 88.6, Mean Corpuscular Hemoglobin 30.2 , Mean Corpuscular Hemoglobin Concent 34.1, Red Cell Distribution Width 13.2, Platelet Count 257, Neutrophils (%) (Auto) 66.8H, Lymphocytes (%) (Auto) 18.5L, Monocytes (%) (Auto) 9.6H, Eosinophils (%) (Auto) 1.7, Basophils (%) (Auto) 0.4 , Neutrophils # (Auto) 3.4, Lymphocytes # (Auto) 1.1L, Monocytes # (Auto) 0.5, Eosinophils # (Auto) 0.1, Basophils # (Auto) 0.0, Blood Urea Nitrogen 11, Creatinine 0.52L, Sodium Level 143, Potassium Level 3.6, Chloride Level 109H, Carbon Dioxide Level 26, Calcium Level 8.9, Glomerular Filtration Rate > 60.0, Large Unclassified Cells # 0.2, Large Unclassified Cells % 3.2, Magnesium Level 1.9 CBC/BMP Laboratory Tests 08/02/16 04:57 Calcium Level 8.9, Red Blood Count 4.35, Mean Corpuscular Volume 88.6, Mean Corpuscular Hemoglobin 30.2, Mean Corpuscular Hemoglobin Concent 34.1, Red Cell Distribution Width 13.2, Neutrophils (%) (Auto) 66.8 H, Lymphocytes (%) (Auto) 18.5 L, Monocytes (%) (Auto) 9.6 H, Eosinophils (%) (Auto) 1.7, Basophils (%) ( Auto) 0.4, Neutrophils # (Auto) 3.4, Lymphocytes # (Auto) 1.1 L, Monocytes # ( Auto) 0.5, Eosinophils # (Auto) 0.1, Basophils # (Auto) 0.0 Microbiology Microbiology 07/30/16 Urine Culture - Final, Complete GME ATTESTATION GME ATTESTATION My preceptor for this patient encounter was Dr. Aurelio Arreguin, and was physically present in the building during the encounter and was fully available. As needed , all aspects of the patient interview, examination, medical decision making process, and medical care plan development were reviewed and approved by the preceptor. Preceptor is aware and concurs with the plan as stated in the body of this note and will attest to such by his/her cosignature. FAHEEM KWON OGME-1 Aug 02, 2016 22:33
[2016-08-02] MEDS: SIMETHICONE 80 MG CHEW TAB PO PRN (23:38)
[2016-08-03] VITALS (7 sets, daily range): BP systolic 130–190; BP diastolic 76–100
[2016-08-03] MEDS: METOPROLOL 5 MG/5 ML VIAL IV SCH (02:38)
[2016-08-03 05:17] LABS: BASO % 0.3 % (0.0-1.0); EOS # 0.1 K/mm3 (0.0-0.50); EOS % 2.9 % (0.0-3.0); LARGE UNSTAINED CELL # 0.2 K/mm3 (0.0-0.4); LARGE UNSTAINED CELL % 3.9 % (0.0-4.0); LYMPH # 1.2 K/mm3 (1.5-4.5); LYMPH % 23.4 % (24.0-44.0); MEAN CORPUSCULAR HEMOGLOBIN 30.3 pg (27.0-33.0); MEAN CORPUSCULAR HGB CONC 33.9 g/dl (32.0-36.5); MEAN CORPUSCULAR VOLUME 89.2 fl (80.0-96.0); MONO # 0.4 K/mm3 (0.0-0.8); MONO % 8.5 % (0.0-5.0); NEUTROPHILS # 2.8 K/mm3 (1.8-7.7); PLATELET COUNT, AUTOMATED 257 k/mm3 (150-450); WHITE BLOOD COUNT 4.5 K/mm3 (4.0-10.0)
[2016-08-03 05:29] LABS: ANION GAP 9 MEQ/L (8-16); BLOOD UREA NITROGEN 12 MG/DL (7-18); CALCIUM LEVEL 8.9 MG/DL (8.8-10.2); CARBON DIOXIDE LEVEL 25 MEQ/L (21-32); CHLORIDE LEVEL 108 MEQ/L (98-107); CREATININE FOR GFR 0.49 MG/DL (0.55-1.02); GLOMERULAR FILTRATION RATE > 60.0 (>39); GLUCOSE, FASTING 95 MG/DL (83-110); MAGNESIUM LEVEL 1.9 MG/DL (1.8-2.4); POTASSIUM SERUM 3.6 MEQ/L (3.5-5.1); SODIUM LEVEL 142 MEQ/L (136-145)
[2016-08-03] MEDS: SLF 3 ML SYR IV SCH ×3 (06:00→20:48)
[2016-08-03] MEDS: FLUTICASONE PROP 0.05% NASAL SPRAY 16 GM (FLONASE) SCH ×2 (09:21→20:48)
[2016-08-03] MEDS: METOPROLOL TART 12.5 MG PER 1/2 TAB PO SCH ×2 (09:49→20:49)
[2016-08-03] MEDS: hydroCHLOROthiazide 25 MG TAB PO SCH (09:50)
[2016-08-03] MEDS: LISINOPRIL 10 MG TAB PO SCH ×2 (09:50→20:49)
[2016-08-03] MEDS: ENOXAPARIN 40 MG/0.4 ML SYRINGE (J1650) SC SCH (09:53)
[2016-08-03] MEDS ORDERED: METH10TA PO (11:24)
[2016-08-03] MEDS: SIMETHICONE 80 MG CHEW TAB PO PRN ×2 (12:21→18:36)
--- NOTE | 2016-08-03 12:21 | REP ---
NUCLEAR THYROID UPTAKE AND SCAN: Following the oral administration of 386 microcuries iodine 123 as sodium iodine, thyroid uptake is measured. The 2-hour uptake is 2.5% which is below the normal range of 6 to 12%. The 24-hour uptake is 3.7%, which is markedly below the normal range of 25 to 35%. Thyroid scan shows a large focus of increased uptake in the right lobe with very little uptake in the remaining portions of the right lobe and left lobe. Findings are consistent with a hyperfunctioning nodule in the right lobe with suppression of uptake in remaining thyroid tissue. IMPRESSION: Markedly decreased percent uptake values. Focal increased uptake in the right lobe with suppression of uptake in remaining thyroid tissue. Findings are consistent with a hyperfunctioning nodule in the right lobe. Correlating with the ultrasound of 07/31/2016, I would once again recommend ultrasound guided fine-needle aspiration of the largest nodule in each lobe. Signed by Cosmo Peres MD 08/03/2016 01:27 P
[2016-08-03] MEDS: ACETAMINOPHEN TAB 650MG DOSE (2X325MG) PO PRN (18:43)
--- NOTE | 2016-08-03 22:09 | IPNPDOC ---
Subjective Date Seen The patient was seen on 08/03/16. Subjective Chief Complaint/HPI The patient is a 70-year-old female admitted with a reason for visit of Hypertensive Crisis. Patient seen and examined at bedside. States she is feeling better. Admits to bloating in her stomach and some difficulty with relieving gas. Events since last encounter No acute events reported overnight. General: Reports: Normal Appetite, Denies: Chills, Fatigue Constitutional: Denies: Chills, Fever ENT: Denies: Head Aches Skin: Denies: Rash Pulmonary: Denies: Cough, Dyspnea Cardiovascular: Reports: Palpitations, Denies: Chest Pain Gastrointestinal: Reports: Other Symptoms (admits to bloating in her stomach and difficulty expelling gas), Denies: Abdominal Pain, Constipation, Diarrhea, Nausea, Vomiting Genitourinary: Denies: Dysuria Endocrine: Denies: Cold Intolerance, Heat Intolerance Musculoskeletal: Denies: Joint Pain Neurological: Denies: Numbness, Weakness Psych: Reports: Mood Normal Objective Physical Examination General Exam: Positive: Alert, Cooperative, No Acute Distress Eye Exam: Positive: Conjunctiva & lids normal, Negative: Sclera icteric ENT Exam: Positive: Atraumatic Neck Exam: Positive: Other (thyroid gland palpable with mutlple thyroid nodules bilaterally), Supple, Negative: JVD, Lymphadenopathy, thyromegaly Chest Exam: Positive: Clear to auscultation, Normal air movement, Negative: Rales, Rhonchi, Wheezing Heart Exam: Positive: Normal S1, Normal S2, Rate Normal, Regular Rhythm, Negative: Gallops, Murmurs, Rubs Abdomen Exam: Positive: Normal bowel sounds, Soft, Negative: Hepatospenomegaly, Mass, Tenderness Extremity Exam: Positive: Normal pulses, Negative: Clubbing, Cyanosis, Edema, Swelling Skin Exam: Positive: Nl turgor and temperature, Negative: Rash Neuro Exam: Positive: Normal Speech, Sensation Intact Psych Exam: Positive: Anxiety, Memory Intact, Mental status NL, Oriented x 3 Assessment /Plan Assessment 70 yo F presenting with hypertensive emergency secondary to hyperthyroidism and medication noncompliance. Problems (1) Hypertensive emergency Status: Acute Response to Treatment: Improving Discussed With: Patient Problem Specific Plan: Monitor Clinically Problem Text: Symptoms of Left-sided numbness and paresthesias has resolved. Left-sided chest pain has resolved. On telemetry on color television console monitor. Troponins have been negative x 3. Will follow up CBC, BMP, and Mg levels daily. Urine cx pending. Hydralazine discontinued and only PRN continued. Have added hydrochlorothiazide 25 mg daily. have increased lopressor to 12.5 mg BID. Continue lisinopril 10 mg PO BID. Will consider adding calcium channel blockers if BP still not controlled. Follow BMPs and Mg levels daily. (2) Hyperthyroidism Status: Acute Response to Treatment: Uncontrolled Discussed With: Patient Problem Specific Plan: Monitor Clinically, Repeat Labs, Repeat Tests Problem Text: Elevated Thyroid Function Tests: TSH 0.023, Free T4 1.73, thyroxine of 12.2. Have increased methimazole to 10 mg daily. Continue lopressor 12.5 mg BID. Thyroid U/S showed multiple thyroid nodules in bilateral lobes. 4 fine needle aspirations were performed yesterday. Pathology of L thyroid nodule showed benign nodule (suggestive colloid nodule). Thyroid function scan showed hyperfunctioning R lobe nodule. Recommendations made to obtain another FNA of the largest nodule on each thyroid lobe. However, will recommend follow up with Endocrinology first as outpatient for further workup. Part 1 of NM thyroid scan yesterday and part 2 today. Will follow up results when available. Will continue to monitor symptoms, vitals, and anxiety. (3) Left arm numbness Status: Resolved Discussed With: Patient Problem Specific Plan: Monitor Clinically Problem Text: Resolved. Continue frequent neuro checks as necessary. (4) Hypokalemia Status: Acute Response to Treatment: Stable Problem Specific Plan: Monitor Clinically, Repeat Labs Problem Text: K WNL today. Continue to monitor BMPs daily and for any symptoms. (5) Psoriasis Status: Chronic Response to Treatment: Stable Discussed With: Patient Problem Specific Plan: Monitor Clinically Problem Text: Use home medications if needed and if flare occurs. No acute rashes at this time. (6) Headache Status: Acute Response to Treatment: Improving Discussed With: Patient Problem Specific Plan: Monitor Clinically Problem Text: Patient does have some sinus pressure/sinusitis type symptoms. Have ordered flonase. Can add nasal saline spray. Use tylenol for headache. (7) Chest pain Status: Resolved Discussed With: Patient Problem Specific Plan: Monitor Clinically Problem Text: No reported chest pain today. Troponins (-) x 3. Repeat EKG was unremarkable and showed sinus rhythm with ST-T wave abnormalities similar to prior EKG. We'll monitor on color television console monitor and telemetry. (8) Gas pain Status: Acute Response to Treatment: Stable Discussed With: Patient Problem Specific Plan: Monitor Clinically Problem Text: Patient reporting bloating in her stomach and gas pain. Have added simethicone. Will monitor for improvement. Plan/VTE VTE Prophylaxis Ordered?: Yes (lovenox 40 mg sc) Plan IVF: Initiate Diet: Continue Current Activity: Continue Current Therapy: PT Diagnostics: Check Labs, Repeat Labs in AM Anticipated Discharge: Home VS, I&O, 24H, [facility] Vital Signs/I&O Vital Signs Date Time Temp Pulse Resp B/P Pulse Ox O2 Delivery O2 Flow Rate FiO2 08/03/16 20:49 63 160/76 08/03/16 20:00 98.6 20 97 Room Air I&O- Last 24 Hours up to 6 AM 08/03/16 06:00 Intake Total 840 ml Output Total 2600 ml Balance -1760 ml Laboratory Data 24H LABS Laboratory Tests 2 08/03/16 04:57: Anion Gap 9, White Blood Count 4.5, Red Blood Count 4.37, Hemoglobin 13.2, Hematocrit 39.0, Mean Corpuscular Volume 89.2, Mean Corpuscular Hemoglobin 30.3 , Mean Corpuscular Hemoglobin Concent 33.9, Red Cell Distribution Width 13.0, Platelet Count 257, Neutrophils (%) (Auto) 61.0, Lymphocytes (%) (Auto) 23.4L, Monocytes (%) (Auto) 8.5H, Eosinophils (%) (Auto) 2.9, Basophils (%) (Auto) 0.3 , Neutrophils # (Auto) 2.8, Lymphocytes # (Auto) 1.2L, Monocytes # (Auto) 0.4, Eosinophils # (Auto) 0.1, Basophils # (Auto) 0.0, Blood Urea Nitrogen 12, Creatinine 0.49L, Sodium Level 142, Potassium Level 3.6, Chloride Level 108H, Carbon Dioxide Level 25, Calcium Level 8.9, Glomerular Filtration Rate > 60.0, Large Unclassified Cells # 0.2, Large Unclassified Cells % 3.9, Magnesium Level 1.9 CBC/BMP Laboratory Tests 08/03/16 04:57 Calcium Level 8.9, Red Blood Count 4.37, Mean Corpuscular Volume 89.2, Mean Corpuscular Hemoglobin 30.3, Mean Corpuscular Hemoglobin Concent 33.9, Red Cell Distribution Width 13.0, Neutrophils (%) (Auto) 61.0, Lymphocytes (%) (Auto) 23.4 L, Monocytes (%) (Auto) 8.5 H, Eosinophils (%) (Auto) 2.9, Basophils (%) ( Auto) 0.3, Neutrophils # (Auto) 2.8, Lymphocytes # (Auto) 1.2 L, Monocytes # ( Auto) 0.4, Eosinophils # (Auto) 0.1, Basophils # (Auto) 0.0 Microbiology Microbiology 07/30/16 Urine Culture - Final, Complete GME ATTESTATION GME ATTESTATION My preceptor for this patient encounter was Dr. Aurelio Arreguin, and was physically present in the building during the encounter and was fully available. As needed , all aspects of the patient interview, examination, medical decision making process, and medical care plan development were reviewed and approved by the preceptor. Preceptor is aware and concurs with the plan as stated in the body of this note and will attest to such by his/her cosignature. FAHEEM KWON OGME-1 Aug 03, 2016 22:09
[2016-08-04] VITALS: BP 148/80
[2016-08-04 04:00] VITALS: BP 162/92
[2016-08-04] MEDS: SLF 3 ML SYR IV SCH (04:32)
[2016-08-04 05:32] LABS: BASO % 0.8 % (0.0-1.0); EOS # 0.2 K/mm3 (0.0-0.50); EOS % 3.3 % (0.0-3.0); LARGE UNSTAINED CELL # 0.1 K/mm3 (0.0-0.4); LARGE UNSTAINED CELL % 2.8 % (0.0-4.0); LYMPH # 1.4 K/mm3 (1.5-4.5); LYMPH % 27.1 % (24.0-44.0); MEAN CORPUSCULAR HEMOGLOBIN 29.8 pg (27.0-33.0); MEAN CORPUSCULAR VOLUME 90.1 fl (80.0-96.0); MONO # 0.5 K/mm3 (0.0-0.8); MONO % 10.6 % (0.0-5.0); NEUTROPHILS # 2.5 K/mm3 (1.8-7.7); NEUTROPHILS % 55.5 % (36.0-66.0); PLATELET COUNT, AUTOMATED 294 k/mm3 (150-450); WHITE BLOOD COUNT 4.5 K/mm3 (4.0-10.0)
[2016-08-04 05:49] LABS: ANION GAP 7 MEQ/L (8-16); BLOOD UREA NITROGEN 13 MG/DL (7-18); CALCIUM LEVEL 9.3 MG/DL (8.8-10.2); CARBON DIOXIDE LEVEL 29 MEQ/L (21-32); CHLORIDE LEVEL 107 MEQ/L (98-107); CREATININE FOR GFR 0.59 MG/DL (0.55-1.02); GLOMERULAR FILTRATION RATE > 60.0 (>39); GLUCOSE, FASTING 97 MG/DL (83-110); MAGNESIUM LEVEL 2.1 MG/DL (1.8-2.4); SODIUM LEVEL 143 MEQ/L (136-145)
[2016-08-04 07:30] VITALS: BP 130/70
[2016-08-04] MEDS: FLUTICASONE PROP 0.05% NASAL SPRAY 16 GM (FLONASE) SCH (09:00)
[2016-08-04] MEDS: ENOXAPARIN 40 MG/0.4 ML SYRINGE (J1650) SC SCH (09:00)
[2016-08-04] MEDS ORDERED: METO12TA PO (09:05)
[2016-08-04] MEDS ORDERED: HYDR25TAB PO (09:05)
[2016-08-04] MEDS ORDERED: LISI10TA4 PO (09:05)
[2016-08-04] MEDS ORDERED: SIME80TA PO (09:05)
[2016-08-04] MEDS: hydroCHLOROthiazide 25 MG TAB PO SCH (09:54)
[2016-08-04 09:56] VITALS: BP 148/72
[2016-08-04] MEDS: LISINOPRIL 10 MG TAB PO SCH (09:56)
[2016-08-04] MEDS: METOPROLOL TART 12.5 MG PER 1/2 TAB PO SCH (09:57)
--- NOTE | 2016-08-04 21:52 | DS.PDOC ---
Discharge Summary General Date of Admission Jul 30, 2016 at 11:37 Date of Discharge Aug 04, 2016 at 11:17 Primary Care Physician: Josh Choudhary Attending Physician: BHARAT HORTON MD Discharge Summary Consults: None. Discharge diagnosis: Hypertensive Emergency secondary to Hyperthyroidism Left Arm Numbness Resolved Chest Pain Resolved Secondary diagnosis: Hypertension Sinusitis Psoriasis Depression Questionable arthritis (In the right foot Glaucoma Hypokalemia Elevated Thyroid Function Tests Hospital course: 70-year-old [place] female with past medical history significant for hypertension, sinusitis, psoriasis, depression, and questionable arthritis, presented to the emergency department at [facility] on 07/30/16 for symptoms of lightheadedness, dizziness, left arm numbness, and left-sided chest pain that began that morning when she woke up. States that in mid May she had thought she had caught a virus because she was feeling sick, she went to the urgent care , was found to have high blood pressure, was given atenolol, which she took and sometimes felt better, sometimes felt worse, or some days she felt great. She went back to the urgent care the prior to presentation, they had sent her to the emergency department via ambulance due to high blood pressure at "235s" systolic. In the emergency department, she was kept for "4 hours" to get her blood pressure down, was given clonidine which she took 2 tabs of which made her feel feel horrible, dizzy, nauseated. She had stopped this medication and went back to taking atenolol. She took atenolol on Saturday night and on . She slept well the night before coming to the ED. The morning of 07/30, she did not feel too bad at first, she woke up in the morning and felt funny, lightheaded, and had numbness in her left arm, and somewhat left-sided chest pain. She tried to call somebody to get her to the emergency department. Her neighbor had brought her to emergency department. States she has not seen her PCP for 5 years since she lost her Blue [employer] Blue Shield insurance and she was not eligible for Medicare at the age of 65. She had to wait for Social Security from her . She could not afford private insurance as she never worked in this country. She originally saw Dr. Josh Choudhary as her PCP until she had lost her insurance at age 65. Since then, she has not been on any of her blood pressure medications. She has reestablished care with him now. Patient's BP was found to be very high in the ED at 261/132 and patient had L arm numbness which had eventually improved and resolved over time. Patient was admitted to PCU and monitored on telemetry. An EKG was done that showed sinus rhythm without occasional ventricular premature complexes, possible L atrial enlargement, LVH, and ST-T change at a ventricular rate of 76 bpm, QRS duration of 101 ms, and MA interval of 126 ms, and a QTC of 405 ms. Troponins were cycled and negative x 3. A CT scan of the head without contrast done showed very subtle low density area in the R parietal white matter tract which was nonspecific with a differential dx including small acute vs. chronic cerebrovascular infarct, and no hemorrhage or mass/mass effect. A portable CXR was done which showed lung browning with chronic changes including linear scarring in the L mid to lower lung zone, no obvious acute consolidation, effusion, or penumothorax, and no acute cardiopulmonary process, and chronic stable changes. Urinalysis and urine cx were obtained which were negative. Patient was also found to be hypokalemic and potassium was monitored and replaced as needed. For Hypertensive Emergency, patient's chest pain and L sided arm pain had eventually resolved after treatment of her BP. We had began hydralazine, HCTZ, lopressor, and lisinopril. Hydralazine routinely had to be discontinued as one night the patient had developed an allergic reaction of rash on her arms, heat intolerance, and anxiety right after administration, but we had kept her on PRN hydralazine for BP > 195 systolic. CBC, BMP, and Mg levels were monitored daily daily. Repeat EKG showed: sinus rhythm at a rate of [address]-T abnormalities similar to 07/30/16 EKG. Patient's Hypertensive Emergency was thought be secondary to new onset development of Hyperthyroidism that were found with TFTs: TSH 0.023, Free T4: 1.73 (H), Thyroxine T4: 12.2 (H). A thyroid U/S was done on 07/31 showing Multiple Bilateral Nodules. U/S Guided Fine Needle Aspiration on 08/01 was done and the largest nodule on either side of the thyroid were localized, and four fine-need aspirations were obtained on each side. Then, 2-part Nuclear Medicine Thyroid Scan on 08/02 and 08/03 was done using 123 iodine measuring thyroid uptake : 2-hour uptake was 2.5% (below normal range of 6-12%), 24-hour uptake was 3.7% (markedly below the normal range of 25-35%), and a focal increased uptake noted in the R lobe with suppression of uptake in the remaining thyroid tissue, findings were consistent with a hyperfunctioning nodule in the R lobe. It was once again recommended to get ultrasound guided fine-needle aspiration of the largest nodule in each lobe. Patient was then started on methimazole in the hospital. Patient was given DVT ppx: lovenox 40 mg subcutaneously daily. Patient has improved clinically and is hemodynamically and medically stable for discharge. Progress note on date of discharge: Subjective: 70-year-old [place] female was seen and examined at bedside. She denies fevers, chills, headache, dizziness, chest pain, shortness of breath, nausea, vomiting, diarrhea, constipation, rashes or lesions anywhere, swelling, numbness/tingling. Admits to some anxiety. Additionally, she admits generally to hair loss, palpitations, and minimal weight loss. Otherwise, she reports to be feeling much better and is happy to be going home. Objective: Vitals: T: 96.9, BP: 130/70, RR: 20, P:73, O2 Saturation: 96 % room air General: Pleasant elderly female with accent. Sitting up at head of the bed in no acute distress. Awake, alert, oriented 3. HEENT: Head: normocephalic, atraumatic. Eyes: PERRL, sclera are nonicteric. Nose: No external lesions. Psychiatric: Less anxious than prior. Neck: No thyromegaly. +thyroid nodules palpable on bilateral lobes. Respiratory: clear to auscultation bilaterally with no wheezes, rales, or rhonchi. Cardiovascular: regular rate and rhythm, with no murmurs, rubs or gallops. Has a bit of loud palpable heart sounds. Abdomen: soft, nontender, nondistended, no hepatosplenomegaly appreciated. Bowel sounds present. 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 No swelling in either lower extremity bilaterally. Neurological: sensation intact and symmetrical in upper extremities bilaterally. Lymphatics: No cervical lymphadenopathy bilaterally. Integumentary: Has some erythema and pimples and on cheeks bilaterally. Vascular: pulses palpable and symmetrical in upper and lower extremities bilaterally. Laboratory data: Please see below. Microbiology: Urine cultures showed no growth. Assessment: 70 yo F presenting with hypertensive emergency secondary to hyperthyroidism and medication noncompliance. Disposition: Home with new prescriptions for methimazole, HCTZ, lisinopril, metoprolol, and simethicone. Follow-up: Dr. Josh Choudhary PCP as scheduled on 08/06/16. Referral for Dr. Vizcarra Endocrinology within 3-5 days as per PCP and our recommendation for management of her Hyperthyroidism. Activity: As tolerated. Diet: 2 gram sodium. Medications on discharge: Hydrochlorothiazide 25 mg tab PO daily Lisinopril 10 mg tab PO BID Methimazole 10 mg tab PO daily Metoprolol tartrate 25 mg tab: 12.5 mg PO BID Simethicone 80 mg Chew PO TID PRN gas pain Lifitegrast (Xiidra) 5% Patrick 5% OU daily Stopped Medications: Atenolol 25 mg tab PO QHS Time spent on discharge: 35 minutes. Vital Signs/I&Os Vital Signs Date Time Temp Pulse Resp B/P Pulse Ox O2 Delivery O2 Flow Rate FiO2 08/04/16 09:57 70 08/04/16 09:56 148/72 08/04/16 07:30 96.9 20 96 Room Air I&O- Last 24 Hours up to 6 AM 08/04/16 06:00 Intake Total 1660 ml Output Total 2375 ml Balance -715 ml Laboratory Data Labs 24H Laboratory Tests 2 08/04/16 05:00: Anion Gap 7L, White Blood Count 4.5, Red Blood Count 4.60, Hemoglobin 13.7, Hematocrit 41.4, Mean Corpuscular Volume 90.1, Mean Corpuscular Hemoglobin 29.8 , Mean Corpuscular Hemoglobin Concent 33.0, Red Cell Distribution Width 13.0, Platelet Count 294, Neutrophils (%) (Auto) 55.5, Lymphocytes (%) (Auto) 27.1, Monocytes (%) (Auto) 10.6H, Eosinophils (%) (Auto) 3.3H, Basophils (%) (Auto) 0.8, Neutrophils # (Auto) 2.5, Lymphocytes # (Auto) 1.4L, Monocytes # (Auto) 0.5 , Eosinophils # (Auto) 0.2, Basophils # (Auto) 0.0, Blood Urea Nitrogen 13, Creatinine 0.59, Sodium Level 143, Potassium Level 4.0, Chloride Level 107, Carbon Dioxide Level 29, Calcium Level 9.3, Glomerular Filtration Rate > 60.0, Large Unclassified Cells # 0.1, Large Unclassified Cells % 2.8, Magnesium Level 2.1 CBC/BMP Laboratory Tests 08/04/16 05:00 Calcium Level 9.3, Red Blood Count 4.60, Mean Corpuscular Volume 90.1, Mean Corpuscular Hemoglobin 29.8, Mean Corpuscular Hemoglobin Concent 33.0, Red Cell Distribution Width 13.0, Neutrophils (%) (Auto) 55.5, Lymphocytes (%) (Auto) 27.1, Monocytes (%) (Auto) 10.6 H, Eosinophils (%) (Auto) 3.3 H, Basophils (%) ( Auto) 0.8, Neutrophils # (Auto) 2.5, Lymphocytes # (Auto) 1.4 L, Monocytes # ( Auto) 0.5, Eosinophils # (Auto) 0.2, Basophils # (Auto) 0.0 Microbiology Microbiology 07/30/16 Urine Culture - Final, Complete Discharge Medications Scheduled Hydrochlorothiazide (Hydrochlorothiazide) 25 Mg Tab 25 MG PO DAILY Hydrochlorothiazide (Hydrochlorothiazide) 6.25 Mg Quartertab BID (Reported) Lifitegrast (Xiidra) 5 % Patrick 5 % OU DAILY (Reported) Lisinopril (Lisinopril) 10 Mg Tab 10 MG PO BID Methimazole (Methimazole) 10 Mg Tab 10 MG PO DAILY Metoprolol Tartrate (Metoprolol Tartrate) 25 Mg Tab 12.5 MG PO BID Scheduled PRN Simethicone (Simethicone) 80 Mg Chew 80 MG PO TIDP PRN PRN GAS PAIN Allergies Coded Allergies: Hydrocodone (Verified Allergy, Intermediate, rash, 07/26/16) GME ATTESTATION GME ATTESTATION My preceptor for this patient encounter was Dr. Bharat Horton, and was physically present in the building during the encounter and was fully available. As needed , all aspects of the patient interview, examination, medical decision making process, and medical care plan development were reviewed and approved by the preceptor. Preceptor is aware and concurs with the plan as stated in the body of this note and will attest to such by his/her cosignature. FAHEEM KWON-1 Aug 04, 2016 21:52 FAHEEM KWON-1 Aug 04, 2016 21:52
[2016-08-05] MEDS ORDERED: HYDR62TA (16:14)
[2016-08-08 09:14] LABS: THYROID PEROXIDASE ANTIBODY < 28.0 U/ML (<60.0)
== END 2016-08-04 11:17 | disposition home or self-care (01) | DRG 644 ==
LOC: M ED 09:10 → M ED INP 11:37 → M PCU 15:15
PROVIDERS: ADMIT Internal Medicine; ATTEND Internal Medicine
PROC: 0GBG3ZX Excision of Left Thyroid Gland Lobe, Percutaneous Approach, Diagnostic (ICD-10-PCS; principal; 2016-08-01)
PROC: 0GBH3ZX Excision of Right Thyroid Gland Lobe, Percutaneous Approach, Diagnostic (ICD-10-PCS; 2016-08-01)
DX: E05.90 Thyrotoxicosis, unspecified without thyrotoxic crisis or storm (principal); I16.1 Hypertensive emergency; I10 Essential (primary) hypertension; E87.6 Hypokalemia; R14.1 Gas pain; F32.9 Major depressive disorder, single episode, unspecified; R94.6 Abnormal results of thyroid function studies; J30.9 Allergic rhinitis, unspecified; J32.9 Chronic sinusitis, unspecified; H40.9 Unspecified glaucoma; L40.9 Psoriasis, unspecified; M19.90 Unspecified osteoarthritis, unspecified site; Z91.14 Patient's other noncompliance with medication regimen; Z90.710 Acquired absence of both cervix and uterus; Z88.5 Allergy status to narcotic agent; Z79.899 Other long term (current) drug therapy; Z87.891 Personal history of nicotine dependence; Z82.49 Family history of ischemic heart disease and other diseases of the circulatory system

== ENCOUNTER 2016-08-05 15:53 | Emergency (ER) | payer MEDICARE ==
[~2016-08-05] VITALS: Ht 162.6 cm; Wt 58.1 kg
[~2016-08-05 15:53] MED LIST changes: +HYDR25TAB PO; +LISI10TA4 PO; +METH10TA PO; +METO12TA PO; +SIME80TA PO; +XIID5DRO OU
[2016-08-05] MEDS ORDERED: HYDR62TA (16:14)
--- NOTE | 2016-08-05 18:03 | REP ---
Clinical: Chest pain and dizziness . Comparison: 07/30/2016 . Technique: PA and lateral. Findings: The mediastinum and cardiac silhouette are normal. The lung browning are clear and without acute consolidation, effusion, or pneumothorax. The skeletal structures are intact and normal. Impression: 1. No acute cardiopulmonary process. Signed by Blake Maloney MD 08/05/2016 05:54 P
[2016-08-05 18:40] LABS: VENOUS BASE EXCESS 2.9 (-2.0-2.0); VENOUS PARTIAL PRESSURE O2 65.4 mmHg (30.0-50.0); VENOUS STANDARD HCO3 26.9 MEQ/L; VENOUS TOTAL CO2 28.3 MEQ/L (24.0-28.0)
[2016-08-05 18:42] LABS: BASO % 0.5 % (0.0-1.0); EOS % 0.7 % (0.0-3.0); LARGE UNSTAINED CELL # 0.2 K/mm3 (0.0-0.4); LYMPH # 1.1 K/mm3 (1.5-4.5); LYMPH % 18.5 % (24.0-44.0); MEAN CORPUSCULAR HEMOGLOBIN 29.3 pg (27.0-33.0); MEAN CORPUSCULAR HGB CONC 33.7 g/dl (32.0-36.5); MONO # 0.4 K/mm3 (0.0-0.8); MONO % 6.1 % (0.0-5.0); NEUTROPHILS # 4.2 K/mm3 (1.8-7.7); NEUTROPHILS % 71.1 % (36.0-66.0); PLATELET COUNT, AUTOMATED 310 k/mm3 (150-450); RED CELL DISTRIBUTION WIDTH 12.8 % (11.5-14.5)
[2016-08-05 18:53] LABS: INR 1.05
[2016-08-05 19:07] LABS: METHADONE URINE NEGATIVE (NEGATIVE)
[2016-08-05 19:11] LABS: ALBUMIN 3.7 GM/DL (3.2-5.2); ALBUMIN/GLOBULIN RATIO 1.19 (1.00-1.93); ALKALINE PHOSPHATASE 87 U/L (45-117); ALT/SGPT 30 U/L (12-78); ANION GAP 10 MEQ/L (8-16); AST/SGOT 12 U/L (15-37); BILIRUBIN,DIRECT 0.2 MG/DL (0.0-0.2); BILIRUBIN,TOTAL 0.5 MG/DL (0.2-1.0); BLOOD UREA NITROGEN 25 MG/DL (7-18); CALCIUM LEVEL 9.6 MG/DL (8.8-10.2); CARBON DIOXIDE LEVEL 27 MEQ/L (21-32); CHLORIDE LEVEL 101 MEQ/L (98-107); CREATININE FOR GFR 0.79 MG/DL (0.55-1.02); GLOMERULAR FILTRATION RATE > 60.0 (>39); GLUCOSE, FASTING 121 MG/DL (83-110); POTASSIUM SERUM 3.9 MEQ/L (3.5-5.1); SODIUM LEVEL 138 MEQ/L (136-145); T UPTAKE 37 % (30-39); THYROXINE (T4) 16.1 UG/DL (4.5-12.0); TOTAL PROTEIN 6.8 GM/DL (6.4-8.2)
[2016-08-05 20:00] VITALS: BP 188/92
--- NOTE | 2016-08-06 09:36 | ECGEPIP ---
Stationary ECG Study [facility] - ED Test Date: 2016-08-05 Pat Name: TUAN WHITLEY Department: Room: - Gender: F Medical Chemist: LORI : 1945 Requested By: KIRBY KEENE Order Number: [id number] Reading MD: Alana Rdz Measurements Intervals [place] Rate: 73 P: -16 LA: 124 QRS: 2 QRSD: 94 T: -30 QT: 404 QTc: 448 Interpretive Statements SINUS RHYTHM WITH OCCASIONAL VENTRICULAR PREMATURE COMPLEXES MINIMAL VOLTAGE CRITERIA FOR LVH, CONSIDER NORMAL VARIANT NONSPECIFIC ST & T-WAVE ABNORMALITY DECREASED RATE 07/31/16 Electronically Signed On 08-06-2016 9:36:16 EDT by Alana Rdz
== END 2016-08-05 20:03 | disposition home or self-care (01) ==
LOC: M ED 17:16
DX: F41.9 Anxiety disorder, unspecified (principal); E05.90 Thyrotoxicosis, unspecified without thyrotoxic crisis or storm; I10 Essential (primary) hypertension; Z88.8 Allergy status to other drugs, medicaments and biological substances; Z79.899 Other long term (current) drug therapy
CPT/HCPCS: 71020; 80048; 80076; 80306; 81001; 82550; 82553; 82803; 83735; 84436; 84443; 84479; 84484; 85025; 85610; 93005; 93041; 99284; G0480

== ENCOUNTER → 2016-09-17 | Outpatient (REF) | payer MEDICARE ==
[~2016-09-17] MED LIST changes: +HYDR25TA6
[2016-09-17 20:06] LABS: FREE T4 1.07 NG/DL (0.76-1.46)
== END ==
LOC: M LABDRAW1 17:09
PROVIDERS: ATTEND Internal Medicine Endocrinology, Diabetes & Metabolism
DX: E04.2 Nontoxic multinodular goiter (principal)

== ENCOUNTER → 2016-10-01 | Outpatient (REF) | payer MEDICARE ==
[2016-10-01 18:34] LABS: FREE T4 0.96 NG/DL (0.76-1.46)
== END ==
LOC: M LABDRAW1 17:08
PROVIDERS: ATTEND Internal Medicine Endocrinology, Diabetes & Metabolism
DX: E05.10 Thyrotoxicosis with toxic single thyroid nodule without thyrotoxic crisis or storm (principal)

== ENCOUNTER → 2016-11-16 | Outpatient (REF) | payer MEDICARE ==
[~2016-11-16] MED LIST changes: +AMLO5TAB2 PO; +BIOT50004 PO; +FLON1SPR; +LIOT25TA2 PO; -METO12TA PO; +METO1TAB87 PO; +SYNT137T7 PO
[2016-11-16 18:27] LABS: BASO % 0.3 % (0.0-1.0); EOS # 0.1 K/mm3 (0.0-0.50); EOS % 1.5 % (0.0-3.0); LARGE UNSTAINED CELL # 0.2 K/mm3 (0.0-0.4); LARGE UNSTAINED CELL % 2.7 % (0.0-4.0); LYMPH # 1.7 K/mm3 (1.5-4.5); LYMPH % 25.4 % (24.0-44.0); MEAN CORPUSCULAR HEMOGLOBIN 31.1 pg (27.0-33.0); MEAN CORPUSCULAR HGB CONC 32.7 g/dl (32.0-36.5); MEAN CORPUSCULAR VOLUME 95.2 fl (80.0-96.0); MONO # 0.4 K/mm3 (0.0-0.8); MONO % 5.2 % (0.0-5.0); NEUTROPHILS # 4.4 K/mm3 (1.8-7.7); NEUTROPHILS % 64.9 % (36.0-66.0); PLATELET COUNT, AUTOMATED 236 k/mm3 (150-450); RED CELL DISTRIBUTION WIDTH 13.9 % (11.5-14.5); WHITE BLOOD COUNT 6.8 K/mm3 (4.0-10.0)
[2016-11-16 18:36] LABS: ANION GAP 9 MEQ/L (8-16); BLOOD UREA NITROGEN 26 MG/DL (7-18); CALCIUM LEVEL 9.1 MG/DL (8.8-10.2); CARBON DIOXIDE LEVEL 29 MEQ/L (21-32); CHLORIDE LEVEL 106 MEQ/L (98-107); CREATININE FOR GFR 0.78 MG/DL (0.55-1.02); GLOMERULAR FILTRATION RATE > 60.0 (>39); GLUCOSE, FASTING 93 MG/DL (83-110); MAGNESIUM LEVEL 2.1 MG/DL (1.8-2.4); POTASSIUM SERUM 3.9 MEQ/L (3.5-5.1); SODIUM LEVEL 144 MEQ/L (136-145)
== END ==
LOC: M SFHCPLAZ 15:04
PROVIDERS: ATTEND Internal Medicine
DX: Z01.818 Encounter for other preprocedural examination (principal); E05.90 Thyrotoxicosis, unspecified without thyrotoxic crisis or storm; I10 Essential (primary) hypertension

== ENCOUNTER → 2016-12-21 | Outpatient (REF) | payer MEDICARE ==
[2016-12-21 13:46] LABS: FREE T4 0.76 NG/DL (0.76-1.46)
== END ==
LOC: M LABDRAW1 12:18
PROVIDERS: ATTEND Internal Medicine Endocrinology, Diabetes & Metabolism
DX: E05.10 Thyrotoxicosis with toxic single thyroid nodule without thyrotoxic crisis or storm (principal); E06.9 Thyroiditis, unspecified

== ENCOUNTER 2017-02-01 23:58 | Emergency (ER) | payer MEDICARE ==
[~2017-02-01] VITALS: Ht 167.6 cm; Wt 64.5 kg
[~2017-02-01 23:58] MED LIST changes: -AMLO5TAB2 PO; -BIOT50004 PO; -FLON1SPR; -LIOT25TA2 PO; -SYNT137T7 PO
[2017-02-02 00:17] VITALS: BP 157/89
[2017-02-02] MEDS ORDERED: LIOT25TA2 PO (00:30)
[2017-02-02] MEDS ORDERED: AMLO5TAB2 PO (00:30)
[2017-02-02] MEDS ORDERED: BIOT50004 PO (00:30)
[2017-02-02] MEDS ORDERED: SYNT137T7 PO (00:30)
[2017-02-02 02:47] LABS: ANION GAP 9 MEQ/L (8-16); BLOOD UREA NITROGEN 29 MG/DL (7-18); CALCIUM LEVEL 7.9 MG/DL (8.8-10.2); CARBON DIOXIDE LEVEL 30 MEQ/L (21-32); CHLORIDE LEVEL 106 MEQ/L (98-107); CREATININE FOR GFR 0.86 MG/DL (0.55-1.02); FREE T4 1.61 NG/DL (0.76-1.46); GLOMERULAR FILTRATION RATE > 60.0 (>39); GLUCOSE, FASTING 112 MG/DL (83-110); POTASSIUM SERUM 3.5 MEQ/L (3.5-5.1); SODIUM LEVEL 145 MEQ/L (136-145)
[2017-02-02] MEDS ORDERED: FLON1SPR (04:50)
== END 2017-02-02 05:05 | disposition home or self-care (01) ==
LOC: M ED 23:58
DX: R09.81 Nasal congestion (principal); E89.0 Postprocedural hypothyroidism; E05.90 Thyrotoxicosis, unspecified without thyrotoxic crisis or storm; Z98.890 Other specified postprocedural states; Z79.899 Other long term (current) drug therapy; Z88.5 Allergy status to narcotic agent; Z88.8 Allergy status to other drugs, medicaments and biological substances

== ENCOUNTER → 2017-02-21 | Outpatient (REF) | payer MEDICARE ==
[~2017-02-21] MED LIST changes: +AMLO5TAB2 PO; +BIOT50004 PO; +FLON1SPR; +LIOT25TA2 PO; +SYNT137T7 PO
[2017-02-21 14:43] LABS: FREE T4 1.3 NG/DL (0.76-1.46)
== END ==
LOC: M LABDRAW1 10:58
PROVIDERS: ATTEND Internal Medicine Endocrinology, Diabetes & Metabolism
DX: E89.0 Postprocedural hypothyroidism (principal)

== ENCOUNTER → 2017-04-23 | Outpatient (REF) | payer MEDICARE ==
[2017-04-23 14:34] LABS: FREE T4 1.22 NG/DL (0.76-1.46)
== END ==
LOC: M LABDRAW1 13:31
PROVIDERS: ATTEND Nurse Practitioner Family
DX: E89.0 Postprocedural hypothyroidism (principal)

== ENCOUNTER → 2017-05-15 | Outpatient (REF) | payer MEDICARE ==
[2017-05-15 12:18] LABS: ALBUMIN 3.9 GM/DL (3.2-5.2); ALKALINE PHOSPHATASE 62 U/L (45-117); ALT/SGPT 18 U/L (12-78); ANION GAP 7 MEQ/L (8-16); AST/SGOT 15 U/L (7-37); BILIRUBIN,TOTAL 0.7 MG/DL (0.2-1.0); BLOOD UREA NITROGEN 26 MG/DL (7-18); CALCIUM LEVEL 8.3 MG/DL (8.8-10.2); CARBON DIOXIDE LEVEL 31 MEQ/L (21-32); CHLORIDE LEVEL 105 MEQ/L (98-107); CHOLESTEROL LEVEL 243 MG/DL (<200); CHOLESTEROL RISK RATIO 2.479 (<5); CREATININE FOR GFR 0.81 MG/DL (0.55-1.02); GLOMERULAR FILTRATION RATE > 60.0 (>39); GLUCOSE, FASTING 97 MG/DL (83-110); HDL CHOLESTEROL 98 MG/DL (>40); LDL CHOLESTEROL 123.4 MG/DL (<100); NON-HDL-C 145 MG/DL; POTASSIUM SERUM 3.7 MEQ/L (3.5-5.1); SODIUM LEVEL 143 MEQ/L (136-145); TOTAL PROTEIN 6.9 GM/DL (6.4-8.2); TRIGLYCERIDES LEVEL 108 MG/DL (<150)
== END ==
LOC: M SFHCPLAZ 08:37
DX: I10 Essential (primary) hypertension (principal)
CPT/HCPCS: 80053

== ENCOUNTER → 2018-02-26 | Outpatient (REF) | payer MEDICARE ==
[2018-02-26 11:14] LABS: ALBUMIN 3.9 GM/DL (3.2-5.2); ALKALINE PHOSPHATASE 60 U/L (45-117); ALT/SGPT 20 U/L (12-78); ANION GAP 9 MEQ/L (8-16); AST/SGOT 14 U/L (7-37); BILIRUBIN,TOTAL 0.7 MG/DL (0.2-1.0); BLOOD UREA NITROGEN 18 MG/DL (7-18); CALCIUM LEVEL 8.7 MG/DL (8.8-10.2); CARBON DIOXIDE LEVEL 31 MEQ/L (21-32); CHLORIDE LEVEL 102 MEQ/L (98-107); CREATININE FOR GFR 0.67 MG/DL (0.55-1.30); FREE T4 1.35 NG/DL (0.76-1.46); GLOMERULAR FILTRATION RATE > 60.0 (>39); GLUCOSE, FASTING 106 MG/DL (70-100); POTASSIUM SERUM 3.9 MEQ/L (3.5-5.1); SODIUM LEVEL 142 MEQ/L (136-145); TOTAL PROTEIN 6.9 GM/DL (6.4-8.2)
== END ==
LOC: M SFHCPLAZ 08:17
DX: E03.2 Hypothyroidism due to medicaments and other exogenous substances (principal); I10 Essential (primary) hypertension
CPT/HCPCS: 84443

== ENCOUNTER → 2018-09-04 | Outpatient (REF) | payer MEDICARE ==
[~2018-09-04] MED LIST changes: -AMLO5TAB2 PO; +AMLO5TAB6 PO
[2018-09-04 11:08] LABS: ALBUMIN 3.5 GM/DL (3.2-5.2); ALT/SGPT 18 U/L (12-78); BILIRUBIN,TOTAL 0.8 MG/DL (0.2-1.0); BLOOD UREA NITROGEN 23 MG/DL (7-18); CALCIUM LEVEL 8.1 MG/DL (8.8-10.2); CARBON DIOXIDE LEVEL 30 MEQ/L (21-32); CHLORIDE LEVEL 104 MEQ/L (98-107); CHOLESTEROL LEVEL 185 MG/DL (<200); CHOLESTEROL RISK RATIO 2.032 (<5); CREATININE FOR GFR 0.87 MG/DL (0.55-1.30); FREE T4 1.47 NG/DL (0.76-1.46); GLOMERULAR FILTRATION RATE > 60.0 (>39); GLUCOSE, FASTING 108 MG/DL (70-100); HDL CHOLESTEROL 91 MG/DL (>40); LDL CHOLESTEROL 78 MG/DL (<100); NON-HDL-C 94 MG/DL; POTASSIUM SERUM 3.6 MEQ/L (3.5-5.1); SODIUM LEVEL 141 MEQ/L (136-145); TOTAL PROTEIN 6.8 GM/DL (6.4-8.2); TRIGLYCERIDES LEVEL 79 MG/DL (<150)
== END ==
LOC: M SFHCPLAZ 07:46
PROVIDERS: ATTEND Internal Medicine
DX: I10 Essential (primary) hypertension (principal); E03.2 Hypothyroidism due to medicaments and other exogenous substances; E78.00 Pure hypercholesterolemia, unspecified

== ENCOUNTER → 2019-03-10 | Outpatient (REF) | payer MEDICARE ==
[~2019-03-10] MED LIST changes: -LIOT25TA2 PO; +LIOT25TA8 PO
[2019-03-10 10:30] LABS: ALBUMIN 3.6 GM/DL (3.2-5.2); ALT/SGPT 20 U/L (12-78); BILIRUBIN,TOTAL 0.7 MG/DL (0.2-1.0); BLOOD UREA NITROGEN 14 MG/DL (7-18); CALCIUM LEVEL 8.7 MG/DL (8.8-10.2); CARBON DIOXIDE LEVEL 30 MEQ/L (21-32); CHLORIDE LEVEL 104 MEQ/L (98-107); CREATININE FOR GFR 0.79 MG/DL (0.55-1.30); GLOMERULAR FILTRATION RATE > 60.0 (>39); GLUCOSE, FASTING 106 MG/DL (70-100); POTASSIUM SERUM 3.8 MEQ/L (3.5-5.1); SODIUM LEVEL 139 MEQ/L (136-145); TOTAL PROTEIN 6.9 GM/DL (6.4-8.2)
[2019-03-10 11:01] LABS: HEMOGLOBIN A1c 5.4 %
== END ==
LOC: M SFHCPLAZ 08:18
PROVIDERS: ATTEND Internal Medicine
DX: I10 Essential (primary) hypertension (principal); E03.2 Hypothyroidism due to medicaments and other exogenous substances

== ENCOUNTER → 2019-09-11 | Outpatient (REF) | payer MEDICARE ==
[2019-09-11 10:03] LABS: HEMATOCRIT 41.6 % (36.0-47.0); HEMOGLOBIN 14.3 g/dl (12.0-15.5); MEAN CORPUSCULAR HEMOGLOBIN 32.7 pg (27.0-33.0); MEAN CORPUSCULAR HGB CONC 34.4 g/dl (32.0-36.5); MEAN CORPUSCULAR VOLUME 95.2 fl (80.0-96.0); PLATELET COUNT, AUTOMATED 218 10^3/uL (150-450); RED BLOOD COUNT 4.37 10^6/uL (4.00-5.40); WHITE BLOOD COUNT 4.7 10^3/uL (4.0-10.0)
[2019-09-11 10:17] LABS: ALBUMIN 3.7 GM/DL (3.2-5.2); ALT/SGPT 27 U/L (12-78); BILIRUBIN,TOTAL 0.9 MG/DL (0.2-1.0); BLOOD UREA NITROGEN 14 MG/DL (7-18); CALCIUM LEVEL 9.1 MG/DL (8.8-10.2); CARBON DIOXIDE LEVEL 31 MEQ/L (21-32); CHLORIDE LEVEL 104 MEQ/L (98-107); CHOLESTEROL LEVEL 222 MG/DL (<200); CHOLESTEROL RISK RATIO 2.094 (<5); CREATININE FOR GFR 0.83 MG/DL (0.55-1.30); GLOMERULAR FILTRATION RATE > 60.0 (>39); GLUCOSE, FASTING 118 MG/DL (70-100); HDL CHOLESTEROL 106 MG/DL (>40); LDL CHOLESTEROL 95 MG/DL (<100); NON-HDL-C 116 MG/DL; POTASSIUM SERUM 3.8 MEQ/L (3.5-5.1); SODIUM LEVEL 141 MEQ/L (136-145); THYROID STIMULATING HORMONE 0.593 uIU/ML (0.358-3.740); TRIGLYCERIDES LEVEL 104 MG/DL (<150)
[2019-09-11 10:37] LABS: HEMOGLOBIN A1c 5.6 %
== END ==
LOC: M PLALAB 08:04
PROVIDERS: ATTEND Internal Medicine
DX: E03.2 Hypothyroidism due to medicaments and other exogenous substances (principal); I10 Essential (primary) hypertension; E78.00 Pure hypercholesterolemia, unspecified

== ENCOUNTER → 2020-03-16 | Outpatient (CLI) | payer MEDICARE ==
[~2020-03-16] MED LIST changes: +AMLO1TAB24 PO; -AMLO5TAB6 PO
[2020-03-16 20:49] LABS: HEMOGLOBIN A1c 5.4 %
[2020-03-16 21:23] LABS: ALBUMIN 3.7 GM/DL (3.2-5.2); ALT/SGPT 20 U/L (12-78); BILIRUBIN,TOTAL 0.6 MG/DL (0.2-1.0); BLOOD UREA NITROGEN 24 MG/DL (7-18); CALCIUM LEVEL 9.2 MG/DL (8.8-10.2); CARBON DIOXIDE LEVEL 27 MEQ/L (21-32); CHLORIDE LEVEL 106 MEQ/L (98-107); CREATININE FOR GFR 0.96 MG/DL (0.55-1.30); GLOMERULAR FILTRATION RATE > 60.0 (>39); GLUCOSE, FASTING 112 MG/DL (70-100); MAGNESIUM LEVEL 1.8 MG/DL (1.8-2.4); POTASSIUM SERUM 4.2 MEQ/L (3.5-5.1); SODIUM LEVEL 140 MEQ/L (136-145); TOTAL PROTEIN 6.8 GM/DL (6.4-8.2)
== END ==
LOC: M PLALAB 11:38
PROVIDERS: ATTEND Internal Medicine
DX: I10 Essential (primary) hypertension (principal); R73.01 Impaired fasting glucose

== ENCOUNTER → 2020-09-15 | Outpatient (REF) | payer MEDICARE ==
[~2020-09-15] MED LIST changes: +HYDR-3490 PO; -HYDR25TAB PO; +LISI10TA22 PO; -LISI10TA4 PO; +SIME80CH5 PO; -SIME80TA PO
[2020-09-15 10:40] LABS: BASO # 0.1 10^3/uL (0.0-0.2); EOS # 0.1 10^3/uL (0.0-0.5); EOS % 1.4 % (0.0-3.0); HEMATOCRIT 40.7 % (36.0-47.0); HEMOGLOBIN 13.6 g/dl (12.0-15.5); LYMPH # 1.4 10^3/uL (1.5-5.0); LYMPH % 27.5 % (24.0-44.0); MEAN CORPUSCULAR HEMOGLOBIN 32.2 pg (27.0-33.0); MEAN CORPUSCULAR HGB CONC 33.4 g/dl (32.0-36.5); MEAN CORPUSCULAR VOLUME 96.4 fl (80.0-96.0); MONO # 0.5 10^3/uL (0.0-0.8); MONO % 10.4 % (2.0-8.0); NEUTROPHILS % 59.5 % (36.0-66.0); PLATELET COUNT, AUTOMATED 235 10^3/uL (150-450); RED BLOOD COUNT 4.22 10^6/uL (4.00-5.40)
[2020-09-15 11:12] LABS: ALBUMIN 3.6 GM/DL (3.2-5.2); ALT/SGPT 20 U/L (12-78); BILIRUBIN,TOTAL 0.6 MG/DL (0.2-1.0); BLOOD UREA NITROGEN 20 MG/DL (7-18); CALCIUM LEVEL 9.2 MG/DL (8.8-10.2); CARBON DIOXIDE LEVEL 29 MEQ/L (21-32); CHLORIDE LEVEL 104 MEQ/L (98-107); CHOLESTEROL LEVEL 250 MG/DL (<200); CHOLESTEROL RISK RATIO 2.173 (<5); FREE T4 1.47 NG/DL (0.76-1.46); GLOMERULAR FILTRATION RATE > 60.0 (>39); GLUCOSE, FASTING 94 MG/DL (70-100); HDL CHOLESTEROL 115 MG/DL (>40); LDL CHOLESTEROL 118 MG/DL (<100); NON-HDL-C 135 MG/DL; POTASSIUM SERUM 3.8 MEQ/L (3.5-5.1); SODIUM LEVEL 141 MEQ/L (136-145); THYROID STIMULATING HORMONE 0.689 uIU/ML (0.358-3.740); TRIGLYCERIDES LEVEL 86 MG/DL (<150)
[2020-09-15 11:51] LABS: HEMOGLOBIN A1c 5.3 %
== END ==
LOC: M PLALAB 08:02
PROVIDERS: ATTEND Internal Medicine
DX: J30.2 Other seasonal allergic rhinitis (principal); I10 Essential (primary) hypertension; E03.2 Hypothyroidism due to medicaments and other exogenous substances; R73.01 Impaired fasting glucose; E78.00 Pure hypercholesterolemia, unspecified

== ENCOUNTER → 2021-03-16 | Outpatient (CLI) | payer MEDICARE ==
[2021-03-16 11:06] LABS: ALBUMIN 3.4 GM/DL (3.2-5.2); ALT/SGPT 18 U/L (12-78); BILIRUBIN,TOTAL 0.9 MG/DL (0.2-1.0); BLOOD UREA NITROGEN 17 MG/DL (7-18); CALCIUM LEVEL 8.9 MG/DL (8.8-10.2); CARBON DIOXIDE LEVEL 28 MEQ/L (21-32); CHLORIDE LEVEL 105 MEQ/L (98-107); CREATININE FOR GFR 0.75 MG/DL (0.55-1.30); GLOMERULAR FILTRATION RATE > 60.0 (>39); GLUCOSE, FASTING 130 MG/DL (70-100); HEMOGLOBIN A1c 5.6 %; POTASSIUM SERUM 3.3 MEQ/L (3.5-5.1); SODIUM LEVEL 141 MEQ/L (136-145); TOTAL PROTEIN 6.8 GM/DL (6.4-8.2)
== END ==
LOC: M PLALAB 08:25
PROVIDERS: ATTEND Internal Medicine
DX: I10 Essential (primary) hypertension (principal)
CPT/HCPCS: 36415; 80053; 83036; G0472

== ENCOUNTER → 2021-09-11 | Outpatient (CLI) | payer MEDICARE ==
[2021-09-11 11:18] LABS: ALBUMIN 3.7 GM/DL (3.2-5.2); ALT/SGPT 20 U/L (12-78); BILIRUBIN,TOTAL 1.1 MG/DL (0.2-1.0); BLOOD UREA NITROGEN 19 MG/DL (7-18); CALCIUM LEVEL 9.1 MG/DL (8.8-10.2); CARBON DIOXIDE LEVEL 28 MEQ/L (21-32); CHLORIDE LEVEL 105 MEQ/L (98-107); CHOLESTEROL LEVEL 232 MG/DL (<200); CREATININE FOR GFR 0.83 MG/DL (0.55-1.30); GLOMERULAR FILTRATION RATE > 60.0 (>39); GLUCOSE, FASTING 125 MG/DL (70-100); HDL CHOLESTEROL 111 MG/DL (>40); LDL CHOLESTEROL 103 MG/DL (<100); MAGNESIUM LEVEL 1.8 MG/DL (1.8-2.4); NON-HDL-C 121 MG/DL; SODIUM LEVEL 140 MEQ/L (136-145); THYROID STIMULATING HORMONE 0.145 uIU/ML (0.358-3.740); TOTAL PROTEIN 6.8 GM/DL (6.4-8.2); TRIGLYCERIDES LEVEL 91 MG/DL (<150)
[2021-09-11 12:01] LABS: HEMOGLOBIN A1c 5.2 %
== END ==
LOC: M PLALAB 08:09
PROVIDERS: ATTEND Internal Medicine
DX: I10 Essential (primary) hypertension (principal)

== ENCOUNTER → 2021-11-20 | Outpatient (CLI) | payer MEDICARE ==
[2021-11-20 17:05] LABS: BLOOD UREA NITROGEN 25 MG/DL (7-18); CALCIUM LEVEL 8.8 MG/DL (8.8-10.2); CARBON DIOXIDE LEVEL 27 MEQ/L (21-32); CHLORIDE LEVEL 104 MEQ/L (98-107); CREATININE FOR GFR 0.85 MG/DL (0.55-1.30); GLOMERULAR FILTRATION RATE > 60.0 (>39); GLUCOSE, FASTING 119 MG/DL (70-100); POTASSIUM SERUM 3.7 MEQ/L (3.5-5.1); SODIUM LEVEL 137 MEQ/L (136-145)
== END ==
LOC: M PLALAB 10:27
PROVIDERS: ATTEND Internal Medicine
DX: E03.2 Hypothyroidism due to medicaments and other exogenous substances (principal); I10 Essential (primary) hypertension

== ENCOUNTER 2022-08-26 15:32 | Emergency (ER) | payer MEDICARE ==
[~2022-08-26] VITALS: Ht 160 cm; Wt 65.5 kg
[2022-08-26 16:58] LABS: BASO % 0.5 % (0.0-1.0); EOS % 0.3 % (0.0-3.0); HEMATOCRIT 37.9 % (36.0-47.0); HEMOGLOBIN 13.2 g/dl (12.0-15.5); LYMPH # 1.3 10^3/uL (1.5-5.0); LYMPH % 20.8 % (24.0-44.0); MEAN CORPUSCULAR HEMOGLOBIN 32.1 pg (27.0-33.0); MEAN CORPUSCULAR HGB CONC 34.8 g/dl (32.0-36.5); MEAN CORPUSCULAR VOLUME 92.2 fl (80.0-96.0); MONO # 0.8 10^3/uL (0.0-0.8); MONO % 12.7 % (2.0-8.0); NEUTROPHILS # 4.1 10^3/uL (1.5-8.5); NEUTROPHILS % 65.4 % (36.0-66.0); PLATELET COUNT, AUTOMATED 226 10^3/uL (150-450); RED BLOOD COUNT 4.11 10^6/uL (4.00-5.40); WHITE BLOOD COUNT 6.3 10^3/uL (4.0-10.0)
[2022-08-26 17:30] LABS: CK-MB VALUE MASS < 1.0 NG/ML (<3.6); LIPASE 49 U/L (12-53)
[2022-08-26 17:32] LABS: ALBUMIN 3.7 G/DL (3.2-5.2); ALKALINE PHOSPHATASE 74 U/L (46-116); ALT/SGPT 22 U/L (7.0-40); AST/SGOT 18 U/L (<34); BILIRUBIN,DIRECT 0.2 MG/DL (<0.4); BILIRUBIN,TOTAL 0.8 MG/DL (0.3-1.2); BLOOD UREA NITROGEN 21 MG/DL (9-23); CALCIUM LEVEL 8.8 MG/DL (8.3-10.6); CARBON DIOXIDE LEVEL 25 MMOL/L (20-31); CHLORIDE LEVEL 100 MMOL/L (98-107); GLOMERULAR FILTRATION RATE > 60.0 (>39); GLUCOSE, FASTING 117 MG/DL (74-106); POTASSIUM SERUM 3.6 MMOL/L (3.5-5.1); SODIUM LEVEL 135 MMOL/L (136-145); TOTAL PROTEIN 6.7 G/DL (5.7-8.2)
[2022-08-26 17:34] LABS: FREE T4 1.46 NG/DL (0.89-1.76)
[2022-08-26 17:35] LABS: THYROID STIMULATING HORMONE 1.815 uIU/ML (0.55-4.78)
[2022-08-26 17:54] LABS: CPK CREATINE PHOSPHOKINASE 68 U/L (34-145); MB/CK RELATIVE INDEX 1.47 (< OR =4)
[2022-08-26 18:21] LABS: CK-MB VALUE MASS < 1.0 NG/ML (<3.6)
[2022-08-26 18:23] LABS: CPK CREATINE PHOSPHOKINASE 61 U/L (34-145); MB/CK RELATIVE INDEX 1.63 (< OR =4)
[2022-08-26 20:19] LABS: CK-MB VALUE MASS < 1.0 NG/ML (<3.6); CPK CREATINE PHOSPHOKINASE 80 U/L (34-145); MB/CK RELATIVE INDEX 1.25 (< OR =4)
[2022-08-26 20:37] VITALS: BP 154/74
== END 2022-08-26 20:39 | disposition home or self-care (01) ==
LOC: M ED 15:32
DX: R10.9 Unspecified abdominal pain (principal); R11.0 Nausea; K21.9 Gastro-esophageal reflux disease without esophagitis; R00.1 Bradycardia, unspecified; K57.30 Diverticulosis of large intestine without perforation or abscess without bleeding; I10 Essential (primary) hypertension; E03.9 Hypothyroidism, unspecified; E78.5 Hyperlipidemia, unspecified; Z87.891 Personal history of nicotine dependence; Z90.89 Acquired absence of other organs; Z90.710 Acquired absence of both cervix and uterus; Z88.5 Allergy status to narcotic agent; M51.36 Other intervertebral disc degeneration, lumbar region; Z79.890 Hormone replacement therapy; Z79.899 Other long term (current) drug therapy

== ENCOUNTER → 2022-09-20 | Outpatient (CLI) | payer MEDICARE ==
[2022-09-20 10:33] LABS: BASO % 0.6 % (0.0-1.0); EOS # 0.1 10^3/uL (0.0-0.5); EOS % 0.7 % (0.0-3.0); HEMATOCRIT 39.6 % (36.0-47.0); HEMOGLOBIN 13.3 g/dl (12.0-15.5); LYMPH # 1.6 10^3/uL (1.5-5.0); LYMPH % 22.8 % (24.0-44.0); MEAN CORPUSCULAR HEMOGLOBIN 31.8 pg (27.0-33.0); MEAN CORPUSCULAR HGB CONC 33.6 g/dl (32.0-36.5); MEAN CORPUSCULAR VOLUME 94.7 fl (80.0-96.0); MONO # 0.8 10^3/uL (0.0-0.8); MONO % 10.9 % (2.0-8.0); NEUTROPHILS # 4.4 10^3/uL (1.5-8.5); NEUTROPHILS % 63.4 % (36.0-66.0); PLATELET COUNT, AUTOMATED 280 10^3/uL (150-450); RED BLOOD COUNT 4.18 10^6/uL (4.00-5.40); WHITE BLOOD COUNT 6.9 10^3/uL (4.0-10.0)
[2022-09-20 11:03] LABS: FREE T4 1.84 NG/DL (0.89-1.76); THYROID STIMULATING HORMONE 0.686 uIU/ML (0.55-4.78)
[2022-09-20 11:05] LABS: ALBUMIN 3.5 G/DL (3.2-5.2); ALKALINE PHOSPHATASE 76 U/L (46-116); ALT/SGPT < 9 U/L (7.0-40); AST/SGOT 15 U/L (<34); BILIRUBIN,TOTAL 1.2 MG/DL (0.3-1.2); BLOOD UREA NITROGEN 21 MG/DL (9-23); CALCIUM LEVEL 9.2 MG/DL (8.3-10.6); CARBON DIOXIDE LEVEL 27 MMOL/L (20-31); CHLORIDE LEVEL 102 MMOL/L (98-107); CREATININE FOR GFR 0.84 MG/DL (0.55-1.30); GLOMERULAR FILTRATION RATE > 60.0 (>39); GLUCOSE, FASTING 123 MG/DL (74-106); MAGNESIUM LEVEL 1.7 MG/DL (1.8-2.4); POTASSIUM SERUM 3.4 MMOL/L (3.5-5.1); SODIUM LEVEL 141 MMOL/L (136-145); TOTAL 25(OH) VITAMIN D 44.2 NG/ML (20.0-100.0); TOTAL PROTEIN 6.6 G/DL (5.7-8.2)
[2022-09-20 11:07] LABS: VITAMIN B12 LEVEL 1122 PG/ML (211-911)
== END ==
LOC: M PLALAB 08:05
PROVIDERS: ATTEND Physician Assistant
DX: R10.13 Epigastric pain (principal); E07.9 Disorder of thyroid, unspecified

== ENCOUNTER → 2023-03-21 | Outpatient (CLI) | payer MEDICARE ==
[2023-03-21 12:12] LABS: ALBUMIN 3.4 G/DL (3.2-5.2); ALKALINE PHOSPHATASE 71 U/L (46-116); ALT/SGPT 16 U/L (7.0-40); AST/SGOT 12 U/L (<34); BILIRUBIN,TOTAL 1.2 MG/DL (0.3-1.2); BLOOD UREA NITROGEN 18 MG/DL (9-23); CALCIUM LEVEL 8.6 MG/DL (8.3-10.6); CARBON DIOXIDE LEVEL 26 MMOL/L (20-31); CHLORIDE LEVEL 104 MMOL/L (98-107); CREATININE FOR GFR 0.77 MG/DL (0.55-1.30); GLOMERULAR FILTRATION RATE > 60.0 (>39); GLUCOSE, FASTING 114 MG/DL (74-106); MAGNESIUM LEVEL 1.7 MG/DL (1.8-2.4); POTASSIUM SERUM 3.6 MMOL/L (3.5-5.1); SODIUM LEVEL 140 MMOL/L (136-145); TOTAL PROTEIN 6.7 G/DL (5.7-8.2)
[2023-03-21 12:14] LABS: THYROID STIMULATING HORMONE 1.155 uIU/ML (0.55-4.78)
== END ==
LOC: M PLALAB 08:07
PROVIDERS: ATTEND Nurse Practitioner Adult Health
DX: R79.0 Abnormal level of blood mineral (principal); E07.9 Disorder of thyroid, unspecified

== ENCOUNTER → 2023-05-09 | Outpatient (REF) | payer MEDICARE ==
[~2023-05-09] MED LIST changes: -BIOT50004 PO; +BIOT5CAP8 PO
== END ==
LOC: M SFHCDERM 13:52
PROVIDERS: ATTEND Physician Assistant
DX: B07.9 Viral wart, unspecified (principal)

== ENCOUNTER 2023-06-01 21:39 | Emergency (ER) | payer MEDICARE ==
[~2023-06-01] VITALS: Ht 165.1 cm; Wt 61.4 kg
[2023-06-02] MEDS ORDERED: methylPREDNISolone 125MG 2ML VIAL IV ONE (00:40)
[2023-06-02] MEDS ORDERED: TRANEXAMIC ACID INJection 1,000 MG in D5W MINI-BAG PLUS 100 ML IV ONE ×2 (00:40→01:45)
[2023-06-02] MEDS ORDERED: diphenhydrAMINE 50MG/ML VIAL IV ONE (00:40)
[2023-06-02] MEDS ORDERED: FAMOTIDINE 20MG/2ML VIAL IVP ONE (00:40)
[2023-06-02 01:01] LABS: BASO % 0.5 % (0.0-1.0); EOS % 0.5 % (0.0-3.0); HEMATOCRIT 40.6 % (36.0-47.0); HEMOGLOBIN 14.2 g/dl (12.0-15.5); LYMPH # 1.4 10^3/uL (1.5-5.0); LYMPH % 21.1 % (24.0-44.0); MEAN CORPUSCULAR HEMOGLOBIN 32.6 pg (27.0-33.0); MEAN CORPUSCULAR VOLUME 93.3 fl (80.0-96.0); MONO # 0.7 10^3/uL (0.0-0.8); MONO % 10.8 % (2.0-8.0); NEUTROPHILS # 4.3 10^3/uL (1.5-8.5); NEUTROPHILS % 66.8 % (36.0-66.0); PLATELET COUNT, AUTOMATED 251 10^3/uL (150-450); RED BLOOD COUNT 4.35 10^6/uL (4.00-5.40); WHITE BLOOD COUNT 6.5 10^3/uL (4.0-10.0)
[2023-06-02 01:30] LABS: BLOOD UREA NITROGEN 26 MG/DL (9-23); CALCIUM LEVEL 9.4 MG/DL (8.3-10.6); CARBON DIOXIDE LEVEL 27 MMOL/L (20-31); CHLORIDE LEVEL 105 MMOL/L (98-107); CREATININE FOR GFR 0.85 MG/DL (0.55-1.30); GLOMERULAR FILTRATION RATE > 60.0 (>39); GLUCOSE, FASTING 126 MG/DL (74-106); POTASSIUM SERUM 3.6 MMOL/L (3.5-5.1); SODIUM LEVEL 140 MMOL/L (136-145)
[2023-06-02] MEDS ORDERED: PRED20TA PO (02:21)
[2023-06-02] MEDS ORDERED: PEPC1TAB5 PO (02:21)
[2023-06-02] MEDS ORDERED: NORV5TAB PO (02:33)
[2023-06-02 02:53] VITALS: BP 143/89; TEMP 98.4; O2SAT 97
== END 2023-06-02 03:00 | disposition home or self-care (01) ==
LOC: M ED 21:39
DX: T78.3XXA Angioneurotic edema, initial encounter (principal); E03.9 Hypothyroidism, unspecified; I10 Essential (primary) hypertension; Z88.5 Allergy status to narcotic agent; Z91.041 Radiographic dye allergy status; Z79.890 Hormone replacement therapy; Z79.899 Other long term (current) drug therapy
CPT/HCPCS: 80048; 85025; 93041; 94760; 96365; 96366; 96375; 99285; J1200; J2930

== ENCOUNTER → 2023-06-17 | Outpatient (CLI) | payer MEDICARE ==
[~2023-06-17] MED LIST changes: +NORV5TAB PO; +PEPC1TAB5 PO; +PRED20TA PO
== END ==
LOC: M PLALAB 12:21
PROVIDERS: ATTEND Nurse Practitioner Adult Health
DX: T78.3XXD Angioneurotic edema, subsequent encounter (principal)

== ENCOUNTER → 2023-07-12 | Outpatient (CLI) | payer MEDICARE ==
[2023-07-12 14:35] LABS: BASO % 0.6 % (0.0-1.0); EOS % 0.5 % (0.0-3.0); HEMATOCRIT 41.6 % (36.0-47.0); LYMPH # 1.3 10^3/uL (1.5-5.0); LYMPH % 21.4 % (24.0-44.0); MEAN CORPUSCULAR HEMOGLOBIN 32.6 pg (27.0-33.0); MEAN CORPUSCULAR HGB CONC 33.7 g/dl (32.0-36.5); MEAN CORPUSCULAR VOLUME 96.7 fl (80.0-96.0); MONO # 0.6 10^3/uL (0.0-0.8); MONO % 9.3 % (2.0-8.0); NEUTROPHILS # 4.2 10^3/uL (1.5-8.5); NEUTROPHILS % 67.9 % (36.0-66.0); PLATELET COUNT, AUTOMATED 256 10^3/uL (150-450); WHITE BLOOD COUNT 6.2 10^3/uL (4.0-10.0)
[2023-07-12 15:13] LABS: FERRITIN 154.9 NG/ML (7.3-270.7); THYROID STIMULATING HORMONE 0.552 uIU/ML (0.55-4.78)
[2023-07-12 15:15] LABS: FREE T4 1.75 NG/DL (0.89-1.76)
[2023-07-12 15:16] LABS: ALBUMIN 3.4 G/DL (3.2-5.2); ALKALINE PHOSPHATASE 91 U/L (46-116); ALT/SGPT 15 U/L (7.0-40); AST/SGOT 16 U/L (<34); BILIRUBIN,TOTAL 0.9 MG/DL (0.3-1.2); BLOOD UREA NITROGEN 22 MG/DL (9-23); CALCIUM LEVEL 8.7 MG/DL (8.3-10.6); CARBON DIOXIDE LEVEL 31 MMOL/L (20-31); CHLORIDE LEVEL 102 MMOL/L (98-107); CREATININE FOR GFR 0.74 MG/DL (0.55-1.30); GLOMERULAR FILTRATION RATE > 60.0 (>39); GLUCOSE, FASTING 106 MG/DL (74-106); MAGNESIUM LEVEL 1.9 MG/DL (1.8-2.4); POTASSIUM SERUM 3.5 MMOL/L (3.5-5.1); SODIUM LEVEL 141 MMOL/L (136-145); TOTAL PROTEIN 6.6 G/DL (5.7-8.2)
== END ==
LOC: M PLALAB 11:37
PROVIDERS: ATTEND Family Medicine
DX: Z01.818 Encounter for other preprocedural examination (principal); I10 Essential (primary) hypertension; E03.2 Hypothyroidism due to medicaments and other exogenous substances; Z86.39 Personal history of other endocrine, nutritional and metabolic disease

== ENCOUNTER 2023-07-23 07:09 | Day surgery (SDC) | payer MEDICARE ==
[~2023-07-23] VITALS: Ht 165.1 cm; Wt 65.3 kg
[~2023-07-23 07:09] MED LIST changes: +CHLO125TA PO; +COQ150CH PO; +GNP250TA9 PO; +LEVO112T2 PO; +METO1TAB7 PO; +MONT10TA97 PO; +POTA-298 PO
[2023-07-23] MEDS: TROPICAMIDE 1% OPHTH SOLN 15ML OD SCH (07:42)
[2023-07-23] MEDS: PROPARACAINE 0.5% OPHTH SOL 15ML OD ONE (07:42)
[2023-07-23] MEDS: OFLOXACIN 0.3 % (OCUFLOX) OPTH SOL 5ML OD SCH (07:43)
[2023-07-23] MEDS: PHENYLEPHRINE 2.5% OPHTH SOL 2ML OD SCH (07:43)
[2023-07-23] MEDS: ATROPINE SULFATE 1% OPHTH SOLN 2ML BTL OD SCH (07:43)
[2023-07-23] MEDS: BSS IRR 500ML/OMIDRIA 4ML IRR BAG (OR ONLY) As Ordered ONE (08:45)
[2023-07-23] MEDS: CEFUROXIME 1MG/0.1ML INTRACAMERAL INJ As Ordered ONE (08:45)
[2023-07-23] MEDS: LIDOCAINE 1% SDV 5ML VIAL As Ordered ONE (08:45)
[2023-07-23] MEDS ORDERED: fentaNYL 100 MCG/2 ML INJECTION As Ordered ONE (08:47)
[2023-07-23] MEDS ORDERED: MIDAZOLAM INJ 2MG/2ML VIAL As Ordered ONE (08:47)
[2023-07-23 08:56] VITALS: BP 141/82; TEMP 98.6; O2SAT 96
== END 2023-07-23 09:20 | disposition home or self-care (01) ==
LOC: M SDC 07:09
PROVIDERS: ATTEND Ophthalmology
DX: H25.11 Age-related nuclear cataract, right eye (principal); I10 Essential (primary) hypertension; E03.9 Hypothyroidism, unspecified; Z79.899 Other long term (current) drug therapy; Z79.890 Hormone replacement therapy; Z88.5 Allergy status to narcotic agent; Z88.8 Allergy status to other drugs, medicaments and biological substances
CPT/HCPCS: 66984; J0697; J1097; J2250; J3010; V2632

== ENCOUNTER 2023-09-23 10:58 | Day surgery (SDC) | payer MEDICARE ==
[~2023-09-23] VITALS: Ht 149.9 cm; Wt 66.9 kg
[~2023-09-23 10:58] MED LIST changes: +ATROPINE SULFATE 1% OPHTH SOLN 2ML BTL OS SCH; +FLURBIPROFEN 0.03% OPHTH SOLN 2.5 ML OS SCH; +LR 1,000 ML IV SCH; +PHENYLEPHRINE 2.5% OPHTH SOL 2ML OS SCH; +TETRACAINE 0.5% OPHTH SOLN 4ML OS SCH
[2023-09-23] MEDS ORDERED: MIDAZOLAM INJ 2MG/2ML VIAL As Ordered ONE (13:19)
[2023-09-23] MEDS ORDERED: fentaNYL 100 MCG/2 ML INJECTION As Ordered ONE (13:20)
[2023-09-23] MEDS: LIDOCAINE 1% SDV 5ML VIAL As Ordered ONE (13:49)
[2023-09-23] MEDS: CEFUROXIME 1MG/0.1ML INTRACAMERAL INJ As Ordered ONE (13:50)
[2023-09-23 14:08] VITALS: BP 151/86; TEMP 97.9; O2SAT 97
== END 2023-09-23 14:30 | disposition home or self-care (01) ==
LOC: M SDC 10:58
PROVIDERS: ATTEND Ophthalmology
DX: H25.12 Age-related nuclear cataract, left eye (principal); M25.512 Pain in left shoulder; M79.602 Pain in left arm; I10 Essential (primary) hypertension; E05.20 Thyrotoxicosis with toxic multinodular goiter without thyrotoxic crisis or storm; E03.9 Hypothyroidism, unspecified; M19.90 Unspecified osteoarthritis, unspecified site; L40.9 Psoriasis, unspecified; Z98.41 Cataract extraction status, right eye; Z88.5 Allergy status to narcotic agent; Z88.8 Allergy status to other drugs, medicaments and biological substances; Z79.899 Other long term (current) drug therapy; Z79.890 Hormone replacement therapy
CPT/HCPCS: 66984; J0697; J2250; J3010; V2632

== ENCOUNTER → 2023-10-09 | Outpatient (CLI) | payer MEDICARE ==
[~2023-10-09] MED LIST changes: -ATROPINE SULFATE 1% OPHTH SOLN 2ML BTL OS SCH; -FLURBIPROFEN 0.03% OPHTH SOLN 2.5 ML OS SCH; +HOLTER MONITOR XX; -LR 1,000 ML IV SCH; -PHENYLEPHRINE 2.5% OPHTH SOL 2ML OS SCH; -TETRACAINE 0.5% OPHTH SOLN 4ML OS SCH
[2023-10-09 12:44] LABS: ALBUMIN 3.4 G/DL (3.2-5.2); ALKALINE PHOSPHATASE 74 U/L (46-116); ALT/SGPT 17 U/L (7.0-40); AST/SGOT 11 U/L (<34); BILIRUBIN,TOTAL 1.9 MG/DL (0.3-1.2); BLOOD UREA NITROGEN 18 MG/DL (9-23); CALCIUM LEVEL 8.4 MG/DL (8.3-10.6); CARBON DIOXIDE LEVEL 30 MMOL/L (20-31); CHLORIDE LEVEL 104 MMOL/L (98-107); GLOMERULAR FILTRATION RATE > 60.0 (>39); GLUCOSE, FASTING 103 MG/DL (74-106); POTASSIUM SERUM 3.7 MMOL/L (3.5-5.1); SODIUM LEVEL 141 MMOL/L (136-145); TOTAL PROTEIN 6.5 G/DL (5.7-8.2)
[2023-10-09 12:46] LABS: THYROID STIMULATING HORMONE 2.792 uIU/ML (0.55-4.78)
[2023-10-10 11:06] LABS: FREE T4 1.79 NG/DL (0.89-1.76)
== END ==
LOC: M PLALAB 08:38
PROVIDERS: ATTEND Physician Assistant Medical
DX: E03.2 Hypothyroidism due to medicaments and other exogenous substances (principal)

== ENCOUNTER → 2023-11-21 | Outpatient (CLI) | payer MEDICARE | LOC: M SOG 07:50 | PROVIDERS: ATTEND Physician Assistant | DX: M25.511 Pain in right shoulder (principal) ==

== ENCOUNTER 2024-03-15 16:38 | Emergency (ER) | payer BC, MEDICARE ==
[~2024-03-15] VITALS: Ht 165.1 cm; Wt 66.5 kg
[2024-03-15 16:41] VITALS: TEMP 97.6
[2024-03-15 18:26] LABS: ALBUMIN 3.3 G/DL (3.2-5.2); ALKALINE PHOSPHATASE 68 U/L (35-104); ALT/SGPT 13 U/L (7.0-40); AST/SGOT 12 U/L (<34); BILIRUBIN,TOTAL 0.8 MG/DL (0.3-1.2); BLOOD UREA NITROGEN 19 MG/DL (9-23); CALCIUM LEVEL 8.9 MG/DL (8.3-10.6); CARBON DIOXIDE LEVEL 22 MMOL/L (20-31); CHLORIDE LEVEL 108 MMOL/L (98-107); CREATININE FOR GFR 0.66 MG/DL (0.55-1.30); GLOMERULAR FILTRATION RATE > 60.0 (>39); GLUCOSE, FASTING 140 MG/DL (74-106); POTASSIUM SERUM 3.7 MMOL/L (3.5-5.1); SODIUM LEVEL 139 MMOL/L (136-145); TOTAL PROTEIN 6.6 G/DL (5.7-8.2)
[2024-03-15 18:57] VITALS: BP 162/84; O2SAT 96
== END 2024-03-15 18:59 | disposition home or self-care (01) ==
LOC: M ED 16:38
DX: F41.9 Anxiety disorder, unspecified (principal); I10 Essential (primary) hypertension; I45.81 Long QT syndrome; E03.9 Hypothyroidism, unspecified; E87.6 Hypokalemia; F10.10 Alcohol abuse, uncomplicated; Z88.8 Allergy status to other drugs, medicaments and biological substances; Z91.09 Other allergy status, other than to drugs and biological substances; Z79.899 Other long term (current) drug therapy

== ENCOUNTER → 2024-03-30 | Outpatient (CLI) | payer MEDICARE ==
[2024-03-30 11:43] LABS: HEMATOCRIT 41.2 % (36.0-47.0); MEAN CORPUSCULAR HEMOGLOBIN 32.7 pg (27.0-33.0); MEAN CORPUSCULAR VOLUME 96.3 fl (80.0-96.0); PLATELET COUNT, AUTOMATED 245 10^3/uL (150-450); RED BLOOD COUNT 4.28 10^6/uL (4.00-5.40); WHITE BLOOD COUNT 6.5 10^3/uL (4.0-10.0)
[2024-03-30 11:48] LABS: ALBUMIN 3.5 G/DL (3.2-5.2); ALKALINE PHOSPHATASE 74 U/L (35-104); ALT/SGPT 16 U/L (7.0-40); AST/SGOT 14 U/L (<34); BILIRUBIN,TOTAL 1.1 MG/DL (0.3-1.2); BLOOD UREA NITROGEN 18 MG/DL (9-23); CALCIUM LEVEL 9.4 MG/DL (8.3-10.6); CARBON DIOXIDE LEVEL 29 MMOL/L (20-31); CHLORIDE LEVEL 106 MMOL/L (98-107); CHOLESTEROL LEVEL 271 MG/DL (<200); CHOLESTEROL RISK RATIO 2.59 (<5); CREATININE FOR GFR 0.83 MG/DL (0.55-1.30); GLOMERULAR FILTRATION RATE > 60.0 (>39); GLUCOSE, FASTING 113 MG/DL (74-106); HDL CHOLESTEROL 104.5 MG/DL (>40); LDL CHOLESTEROL 148.1 MG/DL (<100); MAGNESIUM LEVEL 1.6 MG/DL (1.8-2.4); NON-HDL-C 166.5 MG/DL; POTASSIUM SERUM 3.9 MMOL/L (3.5-5.1); SODIUM LEVEL 142 MMOL/L (136-145); TOTAL PROTEIN 7.1 G/DL (5.7-8.2); TRIGLYCERIDES LEVEL 92 MG/DL (<150)
[2024-03-30 11:50] LABS: FREE T4 1.73 NG/DL (0.89-1.76); THYROID STIMULATING HORMONE 1.525 uIU/ML (0.55-4.78); TOTAL 25(OH) VITAMIN D 71.9 NG/ML (20.0-100.0)
== END ==
LOC: M PLALAB 07:44
PROVIDERS: ATTEND Nurse Practitioner Adult Health
DX: E03.2 Hypothyroidism due to medicaments and other exogenous substances (principal); E78.00 Pure hypercholesterolemia, unspecified; I10 Essential (primary) hypertension; R10.13 Epigastric pain

== ENCOUNTER → 2024-09-24 | Outpatient (CLI) | payer MEDICARE ==
[~2024-09-24] MED LIST changes: +LIFI1DRO4 OU; +METH-1387 PO; -METH10TA PO; -XIID5DRO OU
[2024-09-24 11:13] LABS: HEMATOCRIT 40.3 % (36.0-47.0); HEMOGLOBIN 13.4 g/dl (12.0-15.5); MEAN CORPUSCULAR HEMOGLOBIN 31.3 pg (27.0-33.0); MEAN CORPUSCULAR HGB CONC 33.3 g/dl (32.0-36.5); MEAN CORPUSCULAR VOLUME 94.2 fl (80.0-96.0); PLATELET COUNT, AUTOMATED 262 10^3/uL (150-450); RED BLOOD COUNT 4.28 10^6/uL (4.00-5.40)
[2024-09-24 11:21] LABS: ALBUMIN 3.3 G/DL (3.2-5.2); BILIRUBIN,TOTAL 0.9 MG/DL (0.3-1.2); CALCIUM LEVEL 8.8 MG/DL (8.3-10.6); CHOLESTEROL RISK RATIO 3.78 (<5); CREATININE FOR GFR 0.9 MG/DL (0.55-1.30); GLOMERULAR FILTRATION RATE 65.4 (>39); HDL CHOLESTEROL 52.8 MG/DL (>40); LDL CHOLESTEROL 121.4 MG/DL (<100); MAGNESIUM LEVEL 1.9 MG/DL (1.8-2.4); NON-HDL-C 147.2 MG/DL; POTASSIUM SERUM 4.1 MMOL/L (3.5-5.1); THYROID STIMULATING HORMONE 0.497 uIU/ML (0.55-4.78); TOTAL PROTEIN 6.4 G/DL (5.7-8.2)
[2024-09-24 11:22] LABS: FREE T4 2.26 NG/DL (0.89-1.76)
[2024-09-24 11:36] LABS: HEMOGLOBIN A1c 5.6 % (4.0-6.0)
== END ==
LOC: M PLALAB 07:34
PROVIDERS: ATTEND Nurse Practitioner Adult Health
DX: I10 Essential (primary) hypertension (principal)

== ENCOUNTER → 2024-11-24 | Outpatient (CLI) | payer MEDICARE ==
[2024-11-24 12:29] LABS: FREE T4 1.32 NG/DL (0.89-1.76)
== END ==
LOC: M PLALAB 08:02
PROVIDERS: ATTEND Nurse Practitioner Adult Health
DX: E03.2 Hypothyroidism due to medicaments and other exogenous substances (principal)

== ENCOUNTER → 2025-04-01 | Outpatient (REF) | payer MEDICARE ==
[2025-04-01 12:05] LABS: ALT/SGPT 21.0 U/L (7.0-40); AST/SGOT 21.0 U/L (<34); CALCIUM LEVEL 9.1 MG/DL (8.3-10.6); CARBON DIOXIDE LEVEL 26.0 MMOL/L (20-31); CHLORIDE LEVEL 106.0 MMOL/L (98-107); CHOLESTEROL LEVEL 236.0 MG/DL (<200); CHOLESTEROL RISK RATIO 2.49 (<5); CREATININE FOR GFR 1.05 MG/DL (0.55-1.30); GLOMERULAR FILTRATION RATE 54.1 (>39); LDL CHOLESTEROL 121.1 MG/DL (<100); MAGNESIUM LEVEL 1.9 MG/DL (1.8-2.4); NON-HDL-C 141.3 MG/DL; POTASSIUM SERUM 3.4 MMOL/L (3.5-5.1); SODIUM LEVEL 143.0 MMOL/L (136-145); TRIGLYCERIDES LEVEL 101.0 MG/DL (<150)
[2025-04-01 12:06] LABS: FREE T4 1.82 NG/DL (0.89-1.76)
[2025-04-01 12:10] LABS: ESTIMATED AVERAGE GLUCOSE 105.0 MG/DL (60-110)
== END ==
LOC: M PLALAB 10:25
PROVIDERS: ATTEND Nurse Practitioner Adult Health
DX: I10 Essential (primary) hypertension (principal); E03.2 Hypothyroidism due to medicaments and other exogenous substances; E78.00 Pure hypercholesterolemia, unspecified; R79.0 Abnormal level of blood mineral; R73.01 Impaired fasting glucose; E55.9 Vitamin D deficiency, unspecified